=== PATIENT | female | born 1975 | race Caucasian/White ===

== ENCOUNTER 2016-09-21 09:10 | Day surgery (SDC) | payer MEDICARE, MEDICAID ==
[2016-09-21] MEDS ORDERED: PROPOFOL 10 MG/ML VIAL IV ONE (14:00)
[2016-09-21] MEDS ORDERED: MIDAZOLAM HCL 2MG/2ML VIAL IV ONE (14:00)
[2016-09-21] MEDS ORDERED: LIDOCAINE 2% MDV (20MG/ML) 20ML VIAL IV ONE (14:00)
--- NOTE | 2016-09-22 19:35 | Operative Note ---
DATE OF SURGERY: 09/21/2016 OPERATION: COLONOSCOPY with random biopsy. PREOPERATIVE DIAGNOSIS: Crohn's and diarrhea. POSTOPERATIVE DIAGNOSES: 1 No active Crohn's. 2. Normal-appearing ileocolonic anastomosis. 3. Rectosigmoid tattoo unremarkable. PROCEDURE: After informed consent was obtained from the patient, she was placed in the left lateral decubitus position in the endoscopy suite, sedated and monitored by the department of anesthesia. Digital rectal exam was unremarkable. A well-lubricated [id number] colonoscope was inserted into the rectum and advanced to the ileocolonic anastomosis. The ileum itself appeared unremarkable. The anastomosis also appeared unremarkable. There were no obvious inflammatory changes noted. Random colonic biopsies were obtained for histology. No inflammation, polyps, or mass lesions were seen. There were some changes in the rectosigmoid colon that were previous tattooing had occurred. There appeared to be some postoperative nodular changes but no other abnormalities identified. There was no mass or polyp seen in the area of the tattoo. The nodularity had been previously biopsied and appeared to be postoperative. The rectum was unremarkable in forward and J-turn views. The endoscope was straightened, the rectal ampulla deflated, and the endoscope was removed. RECOMMENDATIONS: The patient should resume her medications and diet. She needs to stop smoking. Also, she needs to follow up for continued monitoring of her potassium levels. As always, thank you for allowing me to participate in the healthcare of your patients. CC: ARNIE Sherman
== END 2016-09-21 11:59 | disposition home or self-care (01) ==
LOC: HOP 09:10
PROVIDERS: ATTEND Internal Medicine Gastroenterology
DX: Z87.19 Personal history of other diseases of the digestive system (principal); D12.2 Benign neoplasm of ascending colon
CPT/HCPCS: 81025

== ENCOUNTER 2017-03-18 08:07 | Emergency (ER) | payer MEDICARE, MEDICAID ==
--- NOTE | 2017-03-18 08:29 | Emergency Department Record ---
History of Present Illness - General Chief complaint: Eye Problem Stated complaint: r eye red and swollen Time Seen by Provider: 03/18/17 08:23 Source: Patient, RN notes reviewed Mode of Arrival: Ambulatory - History of Present Illness Initial comments: right lowewr eelid stye and swelling of the lower eye lid. No trauma vision is good. chief complaint: Eye redness Onset/Timin -: Days(s) Onset Description: Gradual, Awoke with symptoms Location: Right eye Place: Home If Injury: None Eye Symptoms: Itching, Redness Severity: Mild If Pain, Quality: Burning Consistency: Constant Associated Symptoms: None Treatments Prior to Arrival: None - Related Data Hx Tetanus Toxoid Vaccination: Yes Patient Tetanus UTD (within 5 yrs): Yes Previous Rx's Medication Instructions Recorded Sulfacetamide Sodium [Bleph-10] 1 - 2 drop AFFEYE QID #5 ml 03/18/17 Allergies Allergy/AdvReac Type Severity Reaction Status Date / Time steroids AdvReac Intermediate crying, Uncoded 07/24/16 16:36 anger, emotionally distressed Travel Screening - Travel/Exposure Within Last 30 Days Have you traveled within the last 30 days?: No - Travel/Exposure Within Last Year Have you traveled outside the [place] in the last year?: No - Additonal Travel Details Have you been exposed to anyone with a communicable illness?: No Review of Systems Reviewed: No additional complaints except as noted below Constitutional: Reports: As per HPI. Denies: Chills, Fever, Malaise, Night sweats, Weakness, Weight change Eyes: Reports: As per HPI, Eye discharge, Other (stye lower eyelid). Denies: Eye pain, Photophobia, Vision change ENT: Reports: As per HPI. Denies: Congestion, Dental pain, Ear pain, Epistaxis , Hearing loss, Throat pain Respiratory: Reports: As per HPI. Denies: Cough, Dyspnea, Hemoptysis, Stridor, Wheezes Cardiovascular: Reports: As per HPI. Denies: Arrhythmia, Chest pain, Dyspnea on exertion, Edema, Murmurs, Orthopnea, Palpitations, Paroxysmal nocturnal dyspnea, Rheumatic Fever, Syncope Endocrine: Reports: As per HPI. Denies: Fatigue, Heat or cold intolerance, Polydipsia, Polyuria Gastrointestinal: Reports: As per HPI. Denies: Abdominal pain, Constipation, Diarrhea, Hematemesis, Hematochezia, Melena, Nausea, Vomiting Genitourinary: Reports: As per HPI. Denies: Abnormal menses, Discharge, Dyspareunia, Dysuria, Frequency, Hematuria, Incontinence, Retention, Urgency Musculoskeletal: Reports: As per HPI. Denies: Arthralgia, Back pain, Gout, Joint swelling, Myalgia, Neck pain Skin: Reports: As per HPI. Denies: Bruising, Change in color, Change in hair/ nails, Lesions, Pruritus, Rash Neurological: Reports: As per HPI. Denies: Abnormal gait, Confusion, Headache, Numbness, Paresthesias, Seizure, Tingling, Tremors, Vertigo, Weakness Psychiatric: Reports: As per HPI. Denies: Anxiety, Auditory hallucinations, Depression, Homicidal thoughts, Suicidal thoughts, Visual hallucinations Hematological/Lymphatic: Reports: As per HPI. Denies: Anemia, Blood Clots, Easy bleeding, Easy bruising, Swollen glands Past Medical History - SOCIAL HISTORY Smoking Status: Light tobacco smoker (<10/day) Alcohol Use: None Drug Use: None - RESPIRATORY Hx Respiratory Disorders: No - CARDIOVASCULAR Hx Cardio Disorders: No - NEURO Hx Neuro Disorders: No - GI Hx GI Disorders: Yes Hx Abdominal Pain: Yes Hx Crohn's Disease: Yes Hx Nausea/Vomiting: Yes Hx Wt Loss/Wt Gain: Yes (gain of 8#'s in 6 mos) Hx of Polyps: Yes - Hx Genitourinary Disorders: No - ENDOCRINE Hx Endocrine Disorders: No - MUSCULOSKELETAL Hx Musculoskeletal Disorders: No - PSYCH Hx Psych Problems: Yes Hx Anxiety: Yes Hx Depression: Yes - HEMATOLOGY/ONCOLOGY Hx Hematology/Oncology Disorders: Yes Hx Cancer: Yes (Cervical) Family Medical History Any Significant Family History?: No Physical Exam - General General Appearance: Alert, Oriented x3, Cooperative, No acute distress - Head Head exam: Normal inspection - Eye Eye exam: PERRL, Conjunctival injection, EOMI, Other (Stye lower eyelid) Pupils: Normal accommodation - ENT ENT exam: Normal exam, Mucous membranes moist, Normal external ear exam, Normal orophraynx, TM's normal bilaterally Ear exam: Normal external inspection. negative: External canal tenderness Nasal Exam: Normal inspection. negative: Discharge, Sinus tenderness Mouth exam: Normal external inspection, Tongue normal Teeth exam: Normal inspection. negative: Dental caries Throat exam: Normal inspection. negative: Tonsillar erythema, Tonsillar exudate - Neck Neck exam: Normal inspection, Full ROM. negative: Tenderness - Respiratory Respiratory exam: Normal lung sounds bilaterally. negative: Respiratory distress - Cardiovascular Cardiovascular Exam: Regular rate, Normal rhythm, Normal heart sounds - GI/Abdominal GI/Abdominal exam: Soft, Normal bowel sounds. negative: Tenderness - Rectal Rectal exam: Deferred - exam: Deferred - Extremities Extremities exam: Normal inspection, Full ROM, Normal capillary refill. negative: Tenderness - Back Back exam: Reports: Normal inspection, Full ROM. Denies: Muscle spasm, Rash noted, Tenderness - Neurological Neurological exam: Alert, Normal gait, Oriented X3, Reflexes normal - Psychiatric Psychiatric exam: Normal affect, Normal mood - Skin Skin exam: Dry, Intact, Normal color, Warm Course Vital Signs 03/18/17 08:12 Temperature 98.3 F Pulse Rate 95 H Respiratory 20 Rate Blood Pressure 113/91 Pulse Ox 100 Disposition Clinical Impression: Emily external Qualifiers: Laterality: right Eyelid: lower Qualified Code(s): H00.012 - Hordeolum externum right lower eyelid Disposition: Home, Self-Care Condition: (1) Good Instructions: Emily (ED) Additional Instructions: warm compresses six times a day follow up with family in 4 days Prescriptions: Sulfacetamide Sodium [Bleph-10] 1 - 2 drop AFFEYE QID #5 ml Forms: Patient Portal Access Time of Disposition: 08:28 Quality - Quality Measures Quality Measures: N/A - Blood Pressure Screening Does Patient Have Any of the Following: No Blood Pressure Classification: Hypertensive Reading Systolic Measurement: 113 Diastolic Measurement: 91 Screening for High Blood Pressure: < First Hypertensive BP, F/U Documented > [ G8950] First Hypertensive Follow-up Interventions: Referral to alternative/primary care provider.
== END 2017-03-18 08:39 | disposition home or self-care (01) ==
LOC: ER 08:07
DX: H00.012 Hordeolum externum right lower eyelid (principal)
CPT/HCPCS: 99282

== ENCOUNTER 2017-04-19 09:01 | Observation (INO) | payer MEDICARE, MEDICAID ==
[2017-04-19] MEDS ORDERED: 0.9 % SODIUM CHLORIDE 1,000 ML BAG IV ONE (09:21)
[2017-04-19] MEDS ORDERED: ONDANSETRON HCL IV 4 MG/2 ML VIAL IV ONE (09:21)
[2017-04-19] MEDS ORDERED: HYDROMORPHONE HCL 1MG/ML **SYRINGE IVP ONE ×3 (09:24→14:35)
[2017-04-19 09:53] LABS: BASO % 0.3 % (0-6); EOS % 0.3 % (0-6); GRAN % 77.8 % (47-80); HEMATOCRIT 42.9 % (35.0-47.0); HEMOGLOBIN 14.7 gm/dl (11.6-16.0); LYMPH % 12.6 % (16-45); MEAN CORPUSCULAR HEMOGLOBIN 32.9 pg (27-33); MEAN CORPUSCULAR HGB CONC 34.3 g/dl (32-36); MEAN PLATELET VOLUME 10.8 fl (7.4-10.4); PLATELET COUNT 319 K/uL (130-400); RED BLOOD COUNT 4.47 M/uL (3.80-5.40); WHITE BLOOD COUNT W/O DIFF 9.9 K/uL (4.2-12.2)
[2017-04-19 10:11] LABS: ALB/GLOB RATIO 1.1 (1.1-1.8); ALBUMIN 3.7 g/dL (4.0-5.0); ALKALINE PHOSPHATASE 61 U/L (35-104); ALT/SGPT 7 U/L (<33); AST/SGOT 15 U/L (10.0-35.0); BLOOD UREA NITROGEN 6 mg/dL (6-20); CREATININE 0.5 mg/dL (0.5-0.9); EST GLOMERULAR FILTRATION RATE > 60 mL/min; GLUCOSE,RANDOM 106 mg/dL (74-109); LIPASE 25 U/L (13-60)
--- NOTE | 2017-04-19 10:30 | Emergency Department Record ---
History of Present Illness - General Chief Complaint: Abdominal Pain Stated Complaint: STOMACH PAIN Time Seen by Provider: 04/19/17 09:07 Source: Patient Mode of Arrival: Ambulatory Limitations: No limitations - History of Present Illness Initial Comments: pt has a long hx of crohns and feels like it is flaring up right now. she has ap and nausea and vomiting. MD Complaint: Abdominal pain Onset/Timin -: Days(s) Location: Diffuse Radiation: None Migration to: No migration Severity: Severe Quality: Aching, Cramping Consistency: Constant Improves With: Nothing Worsens With: Nothing Associated Symptoms: Diarrhea, Nausea, Vomiting - Related Data Patient : No Allergies Allergy/AdvReac Type Severity Reaction Status Date / Time steroids AdvReac Intermediate crying, Uncoded 04/19/17 09:14 anger, emotionally distressed Travel Screening - Travel/Exposure Within Last 30 Days Have you traveled within the last 30 days?: No Review of Systems Reviewed: No additional complaints except as noted below Constitutional: Reports: As per HPI. Denies: Chills, Fever, Malaise, Night sweats, Weakness, Weight change Eyes: Reports: As per HPI. Denies: Eye discharge, Eye pain, Photophobia, Vision change ENT: Reports: As per HPI. Denies: Congestion, Dental pain, Ear pain, Epistaxis , Hearing loss, Throat pain Respiratory: Reports: As per HPI. Denies: Cough, Dyspnea, Hemoptysis, Stridor, Wheezes Cardiovascular: Reports: As per HPI. Denies: Arrhythmia, Chest pain, Dyspnea on exertion, Edema, Murmurs, Orthopnea, Palpitations, Paroxysmal nocturnal dyspnea, Rheumatic Fever, Syncope Endocrine: Reports: As per HPI. Denies: Fatigue, Heat or cold intolerance, Polydipsia, Polyuria Gastrointestinal: Reports: As per HPI. Denies: Abdominal pain, Constipation, Diarrhea, Hematemesis, Hematochezia, Melena, Nausea, Vomiting Genitourinary: Reports: As per HPI. Denies: Abnormal menses, Discharge, Dyspareunia, Dysuria, Frequency, Hematuria, Incontinence, Retention, Urgency Musculoskeletal: Reports: As per HPI. Denies: Arthralgia, Back pain, Gout, Joint swelling, Myalgia, Neck pain Skin: Reports: As per HPI. Denies: Bruising, Change in color, Change in hair/ nails, Lesions, Pruritus, Rash Neurological: Reports: As per HPI. Denies: Abnormal gait, Confusion, Headache, Numbness, Paresthesias, Seizure, Tingling, Tremors, Vertigo, Weakness Psychiatric: Reports: As per HPI. Denies: Anxiety, Auditory hallucinations, Depression, Homicidal thoughts, Suicidal thoughts, Visual hallucinations Hematological/Lymphatic: Reports: As per HPI. Denies: Anemia, Blood Clots, Easy bleeding, Easy bruising, Swollen glands Past Medical History - SOCIAL HISTORY Smoking Status: Light tobacco smoker (<10/day) Alcohol Use: None Drug Use: None - RESPIRATORY Hx Respiratory Disorders: No - CARDIOVASCULAR Hx Cardio Disorders: No - NEURO Hx Neuro Disorders: No - GI Hx GI Disorders: Yes Hx Abdominal Pain: Yes Hx Crohn's Disease: Yes Hx Nausea/Vomiting: Yes Hx Wt Loss/Wt Gain: Yes Hx of Polyps: Yes - Hx Genitourinary Disorders: No - ENDOCRINE Hx Endocrine Disorders: No - MUSCULOSKELETAL Hx Musculoskeletal Disorders: No - PSYCH Hx Psych Problems: Yes Hx Anxiety: Yes Hx Depression: Yes - HEMATOLOGY/ONCOLOGY Hx Hematology/Oncology Disorders: Yes Hx Cancer: Yes (Cervical) Family Medical History Any Significant Family History?: No Physical Exam - General General Appearance: Alert, Oriented x3, Cooperative, No acute distress - Head Head exam: Normal inspection - Eye Eye exam: Normal appearance, PERRL, EOMI Pupils: Normal accommodation - ENT ENT exam: Normal exam, Mucous membranes moist, Normal external ear exam, Normal orophraynx Ear exam: Normal external inspection. negative: External canal tenderness Nasal Exam: Normal inspection. negative: Discharge, Sinus tenderness Mouth exam: Normal external inspection, Tongue normal Teeth exam: Normal inspection. negative: Dental caries Throat exam: Normal inspection. negative: Tonsillar erythema, Tonsillar exudate - Neck Neck exam: Normal inspection, Full ROM. negative: Tenderness - Respiratory Respiratory exam: Normal lung sounds bilaterally. negative: Respiratory distress - Cardiovascular Cardiovascular Exam: Normal rhythm, Normal heart sounds, Tachycardia - GI/Abdominal GI/Abdominal exam: Soft, Normal bowel sounds, Tenderness - Rectal Rectal exam: Deferred - exam: Deferred - Extremities Extremities exam: Normal inspection, Full ROM, Normal capillary refill. negative: Tenderness - Back Back exam: Reports: Normal inspection, Full ROM. Denies: Muscle spasm, Rash noted, Tenderness - Neurological Neurological exam: Alert, CN II-XII intact, Normal gait, Oriented X3 - Psychiatric Psychiatric exam: Normal affect, Normal mood - Skin Skin exam: Dry, Intact, Normal color, Warm Course Vital Signs 04/19/17 09:07 Temperature 97.8 F Pulse Rate 104 H Respiratory 18 Rate Blood Pressure 110/80 Pulse Ox 95 Medical Decision Making - Lab Data Result diagrams: 04/19/17 09:50 04/19/17 09:50 Lab Results 04/19/17 04/19/17 04/19/17 Range/Units 09:50 09:50 09:50 WBC 9.9 (4.2-12.2) K/uL RBC 4.47 (3.80-5.40) M/uL Hgb 14.7 (11.6-16.0) gm/dl Hct 42.9 (35.0-47.0) % MCV 96.0 (81-97) fl MCH 32.9 (27-33) pg MCHC 34.3 (32-36) g/dl RDW 13.0 (11.5-14.5) % Plt Count 319 (130-400) K/uL MPV 10.8 H (7.4-10.4) fl Gran % 77.8 (47-80) % Lymphocytes % 12.6 L (16-45) % Monocytes % 9.0 (0-9) % Eosinophils % 0.3 (0-6) % Basophils % 0.3 (0-6) % Sodium 141 (136-145) mmol/L Potassium 3.1 L (3.4-4.5) mmol/L Chloride 103 (98-107) mmol/L Carbon Dioxide 23.0 (22-29) mmol/L Anion Gap 15.0 (7-16) BUN 6 (6-20) mg/dL Creatinine 0.5 (0.5-0.9) mg/dL Estimated GFR > 60 mL/min Random Glucose 106 (74-109) mg/dL Lactic Acid 1.3 (0.5-2.2) mmol/L Calcium 8.9 (8.6-10.0) mg/dL Total Bilirubin 0.40 (0.2-1.0) mg/dL AST 15 (10.0-35.0) U/L ALT 7 (<33) U/L Alkaline Phosphatase 61 (35-104) U/L Total Protein 7.0 (6.6-8.7) g/dL Albumin 3.7 L (4.0-5.0) g/dL Globulin 3.3 (1.4-4.8) gm/dL Albumin/Globulin Ratio 1.1 (1.1-1.8) Lipase 25 (13-60) U/L Disposition Disposition: Admit Clinical Impression: SBO (small bowel obstruction) Disposition: Still a Patient at [facility] Decision to Admit: Admit from ER Decision to Admit Date: 04/19/17 Decision to Admit Time: 15:30 Forms: Patient Portal Access Quality - Quality Measures Quality Measures: N/A - Blood Pressure Screening Does Patient Have Any of the Following: No Blood Pressure Classification: Pre-Hypertensive BP Reading Systolic Measurement: 110 Diastolic Measurement: 80 Screening for High Blood Pressure: < Pre-Hypertensive BP, F/U Documented > [ G8950] Pre-Hypertensive Follow-up Interventions: Follow-up with rescreen every year.
[2017-04-19 12:33] LABS: URINE APPEARANCE CLEAR; URINE BILIRUBIN NEGATIVE (NEGATIVE); URINE BLOOD NEGATIVE (NEGATIVE); URINE COLOR YELLOW; URINE GLUCOSE (UA) NEGATIVE (NEGATIVE); URINE KETONE NEGATIVE (NEGATIVE); URINE LEUKOCYTE ESTERASE NEGATIVE (NEGATIVE); URINE NITRITE NEGATIVE (NEGATIVE); URINE PROTEIN NEGATIVE (NEGATIVE); URINE UROBILINOGEN 0.2 E.U./dL (0.20 - 1.00)
[2017-04-19] MEDS ORDERED: POTASSIUM CHLORIDE 20 MEQ TABLET PO ONE ×2 (15:35→15:57)
[2017-04-19] MEDS ORDERED: ACETAMINOPHEN 500 MG TABLET PO PRN (16:38)
[2017-04-19] MEDS ORDERED: Non-Formulary MISC (Adalimumab [Humira Pen] 40 MG) SQ SCH (16:38)
[2017-04-19] MEDS ORDERED: POTASSIUM GLUCONATE 99 MG PO SCH (16:38)
[2017-04-19] MEDS: 0.9 % SODIUM CHLORIDE 1000ML 1,000 ML IV PRN (16:49)
[2017-04-19] MEDS: HYDROMORPHONE HCL 1MG/ML **SYRINGE IVP PRN ×2 (16:57→21:37)
[2017-04-19] MEDS: ONDANSETRON HCL IV 4 MG/2 ML VIAL IVP PRN ×2 (17:03→21:09)
[2017-04-19] MEDS: DICYCLOMINE HCL 10 MG CAPSULE PO SCH ×2 (18:13→21:38)
[2017-04-19] MEDS: DULOXETINE HCL 30 MG CAPSULE.DR PO SCH (21:38)
[2017-04-19] MEDS: BUSPIRONE 5 MG TABLET PO SCH (21:38)
[2017-04-19] MEDS: TEMAZEPAM 15 MG CAPSULE PO PRN (21:38)
[2017-04-20] MEDS: 0.9 % SODIUM CHLORIDE 1000ML 1,000 ML IV PRN ×3 (00:35→17:45)
[2017-04-20] MEDS: ONDANSETRON HCL IV 4 MG/2 ML VIAL IVP PRN ×3 (03:03→13:13)
[2017-04-20] MEDS: HYDROMORPHONE HCL 1MG/ML **SYRINGE IVP PRN ×2 (03:40→08:42)
[2017-04-20 06:33] LABS: HEMATOCRIT 39.4 % (35.0-47.0); MEAN CELL VOLUME 97.3 fl (81-97); MEAN CORPUSCULAR HEMOGLOBIN 32.1 pg (27-33); MEAN PLATELET VOLUME 10.8 fl (7.4-10.4); PLATELET COUNT 276 K/uL (130-400); RED BLOOD COUNT 4.05 M/uL (3.80-5.40); RED CELL DISTRIBUTION WIDTH 13.1 % (11.5-14.5)
[2017-04-20 06:41] LABS: BLOOD UREA NITROGEN 8 mg/dL (6-20); CREATININE 0.5 mg/dL (0.5-0.9); EST GLOMERULAR FILTRATION RATE > 60 mL/min; GLUCOSE,RANDOM 100 mg/dL (74-109)
[2017-04-20 06:45] LABS: PLATELET ESTIMATE NORMAL (NORMAL)
[2017-04-20] MEDS ORDERED: POTASSIUM CHLORIDE 20 MEQ TABLET PO ONE (06:57)
--- NOTE | 2017-04-20 07:26 | CT SCAN REPORT ---
EXAM: ABDOMEN AND PELVIS CT WITH IV CONTRAST HISTORY: RIGHT LOWER QUADRANT AND LEFT LOWER QUADRANT ABDOMINAL PAIN FOR THREE DAYS. CROHN'S DISEASE. TECHNIQUE: Contiguous axial images from the lung bases to the symphysis pubis were obtained after the uneventful intravenous administration of 100 ml of Omnipaque 300. Comparison: Abdomen and pelvis CT 12/07/14. FINDINGS: Mild dependent atelectasis at both lung bases. Mild prominence of the intra and extrahepatic biliary tree not unusual status post cholecystectomy. The spleen is unremarkable. The kidneys, adrenals, and pancreas are normal. The gallbladder is absent. There are mild to moderately dilated fluid filled loops of small bowel beginning in the left lower quadrant extending to the ileocolic anastomosis. No obvious bowel wall thickening or mucosal hyperenhancement of the dilated bowel. There is questionable at least mild smooth narrowing at the ileocolic anastomosis best seen on coronal image 56 of 159 for which stomal stenosis is not excluded. Minimal edema in the mesentery of the left mid abdomen. Fluid throughout the colon consistent with diarrhea. The abdominal aorta and mesenteric vessels are patent. No free intraperitoneal fluid. Small, but conspicuous lymph nodes at the root of the mesentery measuring up to 10 x 5 mm. There is laxity of the ventral abdominal wall. There is questionable short segment wall thickening of the sigmoid colon best seen on axial image 92 of 121 with liminal narrowing in this region for which active inflammation is not excluded. No lytic or blastic osseous lesions. IMPRESSION: 1. MILD TO MODERATELY DILATED FLUID FILLED SMALL BOWEL BEGINNING IN THE LEFT LOWER QUADRANT EXTENDING TO THE ILEOCOLIC ANASTOMOSIS WHICH MAY REFLECT LOW GRADE PARTIAL SMALL BOWEL OBSTRUCTION. QUESTIONABLE MILD SMOOTH NARROWING AT THE ANASTOMOSIS WHICH COULD RELATE TO STOMAL STENOSIS. 2. FOCAL MUCOSAL HYPERENHANCEMENT AND REDUCTION OF CALIBER FOCALLY INVOLVING THE SIGMOID COLON FOR WHICH ACTIVE COLITIS DUE TO CROHN'S DISEASE IS NOT EXCLUDED. JOB NUMBER: [id number] [facility]
[2017-04-20] MEDS: DICYCLOMINE HCL 10 MG CAPSULE PO SCH ×4 (08:42→21:16)
[2017-04-20] MEDS: BUSPIRONE 5 MG TABLET PO SCH ×2 (09:12→21:16)
[2017-04-20] MEDS ORDERED: MESALAMINE 1.5 GM PO SCH (10:00)
[2017-04-20] MEDS ORDERED: AZATHIOPRINE 150 MG PO SCH (10:00)
[2017-04-20] MEDS: HYDROCODONE/APAP 5/325MG TABLET PO PRN ×2 (13:16→17:30)
--- NOTE | 2017-04-20 13:50 | History and Physical Report ---
DATE OF ADMISSION: 04/19/2017 SURGEON: Marbin Birch DO ADMITTING DIAGNOSIS: Partial small bowel obstruction. HISTORY OF CHIEF COMPLAINT: The patient is a 41-year-old female who is well known to me. She stated that she developed 2-3 days of crampy abdominal pain. She had some emesis as well. She has been passing gas and moving her bowels. She has a long history of Crohn disease which has been controlled on oral medication, which includes Humira. She has undergone a prior ileocecectomy. She was admitted last night but currently feels better today. CT scan was done which did show findings consistent with partial small bowel obstruction with dilated fluid-filled bowel. There were no obvious findings of an acute Crohn's flare. MEDICAL HISTORY: Crohn disease. SURGICAL HISTORY: Ileocecectomy. CURRENT MEDICATIONS: Humira. ALLERGIES: STEROIDS. SOCIAL HISTORY: She does smoke 1/2 a pack of cigarettes per day. PHYSICAL EXAMINATION: VITAL SIGNS: Stable. She is afebrile. HEART: Regular rate and rhythm. LUNGS: Clear. ABDOMEN: Soft, mildly obese, nontender, nondistended. She has a well-healed infraumbilical laparotomy scar noted. EXTREMITIES: No trace of edema. LABORATORY DATA: Her white count is 9.9, hemoglobin 14.7, platelet count 319. Her chemistries are all normal with the exception of slightly low potassium at 3.1. IMPRESSION: Partial small bowel obstruction, resolving. PLAN: Would recommend a soft diet. If she tolerates this, she can be discharged. She may want to follow up with her commercial illustrator but at this point needs no surgical intervention. Thank you for allowing me to participate in the care of this patient. Please do not hesitate to call me if I can be of further assistance. CC: ARNIE Sherman
[2017-04-20] MEDS: DULOXETINE HCL 30 MG CAPSULE.DR PO SCH (21:16)
[2017-04-20] MEDS: TEMAZEPAM 15 MG CAPSULE PO PRN (21:19)
--- NOTE | 2017-04-30 13:30 | Discharge Summary ---
DATE OF ADMISSION: 04/19/2017 DATE OF DISCHARGE: 04/21/2017 ADMITTING DIAGNOSIS: Small bowel obstruction. DISCHARGE DIAGNOSIS: Small bowel obstruction. HOSPITAL COURSE: The patient is a 41-year-old female who was admitted for abdominal pain. CT scan did show dilated small bowel with a positive small bowel obstruction. Clinically, she was doing well. She was admitted to the floor for IV hydration, pain control. She started to feel better right away. Therefore, a diet was instituted. The next day she was seen. Her exam was benign. We did institute a diet, which was advanced quickly. She was sent home in stable condition on 04/21/2017. She was given instructions to follow up with her analytical chemist and to call me if any problems. SHASHANK
== END 2017-04-21 10:00 | disposition home or self-care (01) ==
LOC: ER 09:01 → MEDSURG 16:11
PROVIDERS: ADMIT Surgery; ATTEND Internal Medicine
DX: K56.690 Other partial intestinal obstruction (principal); Z72.0 Tobacco use; K50.00 Crohn's disease of small intestine without complications; Z85.41 Personal history of malignant neoplasm of cervix uteri; R11.2 Nausea with vomiting, unspecified
CPT/HCPCS: 99285 ×2; 96374; 96375; 83605; 83690; 85025; 80048; 80053; 81003; 85027; 74177; G0378 ×3; Q9967; J2405 ×2; J1170 ×2; J7030

== ENCOUNTER 2017-06-12 11:00 | Inpatient (IN) | payer MEDICARE, MEDICAID ==
[2017-06-12] MEDS ORDERED: ONDANSETRON HCL IV 4 MG/2 ML VIAL IV ONE (11:43)
[2017-06-12] MEDS ORDERED: 0.9 % SODIUM CHLORIDE 1,000 ML BAG IV ONE (11:43)
[2017-06-12] MEDS ORDERED: HYDROMORPHONE HCL 1 MG/ML SYRINGE IVP ONE ×3 (11:45→15:27)
[2017-06-12 12:16] LABS: BASO % 0.2 % (0-6); GRAN % 79.1 % (47-80); HEMATOCRIT 46.5 % (35.0-47.0); HEMOGLOBIN 15.8 gm/dl (11.6-16.0); LYMPH % 8.7 % (16-45); MEAN CELL VOLUME 96.1 fl (81-97); MEAN CORPUSCULAR HEMOGLOBIN 32.6 pg (27-33); MEAN PLATELET VOLUME 10.6 fl (7.4-10.4); PLATELET COUNT 369 K/uL (130-400); RED BLOOD COUNT 4.84 M/uL (3.80-5.40); RED CELL DISTRIBUTION WIDTH 13.3 % (11.5-14.5); WHITE BLOOD COUNT W/O DIFF 11.9 K/uL (4.2-12.2)
[2017-06-12 12:44] LABS: ALB/GLOB RATIO 1.2 (1.1-1.8); ALBUMIN 4.6 g/dL (4.0-5.0); ALKALINE PHOSPHATASE 93 U/L (35-104); ALT/SGPT 10 U/L (<33); AST/SGOT 16 U/L (10.0-35.0); BLOOD UREA NITROGEN 14 mg/dL (6-20); CREATININE 0.7 mg/dL (0.5-0.9); EST GLOMERULAR FILTRATION RATE > 60 mL/min; GLUCOSE,RANDOM 108 mg/dL (74-109); LIPASE 24 U/L (13-60); TOTAL PROTEIN 8.4 g/dL (6.6-8.7)
[2017-06-12] MEDS ORDERED: SOD CHLOR 0.9% WITH KCL 40MEQ 40 MEQ/1,000 ML IV.SOLN IV ONE (13:12)
[2017-06-12 13:28] LABS: URINE APPEARANCE CLEAR; URINE BILIRUBIN MODERATE (NEGATIVE); URINE BLOOD TRACE-I (NEGATIVE); URINE COLOR DARK YELLOW; URINE GLUCOSE (UA) NEGATIVE (NEGATIVE); URINE KETONE 160 mg/dL (NEGATIVE); URINE LEUKOCYTE ESTERASE NEGATIVE (NEGATIVE); URINE NITRITE NEGATIVE (NEGATIVE); URINE UROBILINOGEN 0.2 E.U./dL (0.20 - 1.00)
[2017-06-12 13:34] LABS: URINE AMORPHOUS SEDIMENT 1+; URINE MUCUS HEAVY; URINE WBC NONE SEEN (0-2/hpf)
--- NOTE | 2017-06-12 13:47 | Emergency Department Record ---
History of Present Illness - General Chief Complaint: Abdominal Pain Stated Complaint: CROHNS ACTING UP/FLU Time Seen by Provider: 06/12/17 11:40 Source: Patient Mode of Arrival: Ambulatory Limitations: No limitations - History of Present Illness Initial Comments: pt has had 2 days of ap and vomiting that is similar to her previous sbo. she has vomited more then 10 x MD Complaint: Abdominal pain Onset/Timin -: Days(s) Location: Diffuse, Periumbilical Radiation: None Migration to: No migration Severity: Moderate Improves With: Nothing Worsens With: Nothing Associated Symptoms: Chills, Vomiting - Related Data Patient : No Allergies Allergy/AdvReac Type Severity Reaction Status Date / Time steroids AdvReac Intermediate crying, Uncoded 04/19/17 09:14 anger, emotionally distressed Travel Screening - Travel/Exposure Within Last 30 Days Have you traveled within the last 30 days?: No - Travel/Exposure Within Last Year Have you traveled outside the [place] in the last year?: No - Additonal Travel Details Have you been exposed to anyone with a communicable illness?: No - Travel Symptoms Symptom Screening: None Review of Systems Reviewed: No additional complaints except as noted below Constitutional: Reports: As per HPI. Denies: Chills, Fever, Malaise, Night sweats, Weakness, Weight change Eyes: Reports: As per HPI. Denies: Eye discharge, Eye pain, Photophobia, Vision change ENT: Reports: As per HPI. Denies: Congestion, Dental pain, Ear pain, Epistaxis , Hearing loss, Throat pain Respiratory: Reports: As per HPI. Denies: Cough, Dyspnea, Hemoptysis, Stridor, Wheezes Cardiovascular: Reports: As per HPI. Denies: Arrhythmia, Chest pain, Dyspnea on exertion, Edema, Murmurs, Orthopnea, Palpitations, Paroxysmal nocturnal dyspnea, Rheumatic Fever, Syncope Endocrine: Reports: As per HPI. Denies: Fatigue, Heat or cold intolerance, Polydipsia, Polyuria Gastrointestinal: Reports: As per HPI. Denies: Abdominal pain, Constipation, Diarrhea, Hematemesis, Hematochezia, Melena, Nausea, Vomiting Genitourinary: Reports: As per HPI. Denies: Abnormal menses, Discharge, Dyspareunia, Dysuria, Frequency, Hematuria, Incontinence, Retention, Urgency Musculoskeletal: Reports: As per HPI. Denies: Arthralgia, Back pain, Gout, Joint swelling, Myalgia, Neck pain Skin: Reports: As per HPI. Denies: Bruising, Change in color, Change in hair/ nails, Lesions, Pruritus, Rash Neurological: Reports: As per HPI. Denies: Abnormal gait, Confusion, Headache, Numbness, Paresthesias, Seizure, Tingling, Tremors, Vertigo, Weakness Psychiatric: Reports: As per HPI. Denies: Anxiety, Auditory hallucinations, Depression, Homicidal thoughts, Suicidal thoughts, Visual hallucinations Hematological/Lymphatic: Reports: As per HPI. Denies: Anemia, Blood Clots, Easy bleeding, Easy bruising, Swollen glands Past Medical History - SOCIAL HISTORY Smoking Status: Current every day smoker Alcohol Use: None Drug Use: None - RESPIRATORY Hx Respiratory Disorders: No - CARDIOVASCULAR Hx Cardio Disorders: No - NEURO Hx Neuro Disorders: No - GI Hx GI Disorders: Yes Hx Abdominal Pain: Yes Hx Crohn's Disease: Yes (2011) Hx Nausea/Vomiting: Yes Hx Obstructive Bowel: Yes (today) Hx Wt Loss/Wt Gain: Yes Hx of Polyps: Yes - Hx Genitourinary Disorders: No - ENDOCRINE Hx Endocrine Disorders: No Hx Diabetes: No Hx Thyroid Disease: No - MUSCULOSKELETAL Hx Musculoskeletal Disorders: No - PSYCH Hx Psych Problems: Yes Hx Anxiety: Yes (meds) Hx Depression: Yes (meds) - HEMATOLOGY/ONCOLOGY Hx Hematology/Oncology Disorders: Yes Hx Cancer: Yes (Cervical, hpv) Family Medical History Any Significant Family History?: No Physical Exam - General General Appearance: Alert, Oriented x3, Cooperative, Mild distress - Head Head exam: Normal inspection - Eye Eye exam: Normal appearance, PERRL, EOMI Pupils: Normal accommodation - ENT ENT exam: Normal exam, Mucous membranes moist, Normal external ear exam, Normal orophraynx Ear exam: Normal external inspection. negative: External canal tenderness Nasal Exam: Normal inspection. negative: Discharge, Sinus tenderness Mouth exam: Normal external inspection, Tongue normal Teeth exam: Normal inspection. negative: Dental caries Throat exam: Normal inspection. negative: Tonsillar erythema, Tonsillar exudate - Neck Neck exam: Normal inspection, Full ROM. negative: Tenderness - Respiratory Respiratory exam: Normal lung sounds bilaterally. negative: Respiratory distress - Cardiovascular Cardiovascular Exam: Regular rate, Normal rhythm, Normal heart sounds - GI/Abdominal GI/Abdominal exam: Soft, Normal bowel sounds, Distended, Guarding, Tenderness - Rectal Rectal exam: Deferred - exam: Deferred - Extremities Extremities exam: Normal inspection, Full ROM, Normal capillary refill. negative: Tenderness - Back Back exam: Reports: Normal inspection, Full ROM. Denies: Muscle spasm, Rash noted, Tenderness - Neurological Neurological exam: Alert, CN II-XII intact, Normal gait, Oriented X3 - Psychiatric Psychiatric exam: Normal affect, Normal mood - Skin Skin exam: Dry, Intact, Normal color, Warm Course Vital Signs 06/12/17 06/12/17 06/12/17 11:20 11:49 12:47 Temperature 97.6 F Pulse Rate [ 105 H 101 H Pulse Ox Probe] Respiratory 16 16 Rate Blood Pressure 111/72 112/65 [Left Arm] Pulse Ox 98 97 Medical Decision Making - Lab Data Result diagrams: 06/12/17 11:56 06/12/17 11:56 Lab Results 06/12/17 06/12/17 06/12/17 Range/Units 11:56 11:56 13:20 WBC 11.9 (4.2-12.2) K/uL RBC 4.84 (3.80-5.40) M/uL Hgb 15.8 (11.6-16.0) gm/dl Hct 46.5 (35.0-47.0) % MCV 96.1 (81-97) fl MCH 32.6 (27-33) pg MCHC 34.0 (32-36) g/dl RDW 13.3 (11.5-14.5) % Plt Count 369 (130-400) K/uL MPV 10.6 H (7.4-10.4) fl Gran % 79.1 (47-80) % Lymphocytes % 8.7 L (16-45) % Monocytes % 12.0 H (0-9) % Eosinophils % 0.0 (0-6) % Basophils % 0.2 (0-6) % Sodium 139 (136-145) mmol/L Potassium 2.9 L* (3.4-4.5) mmol/L Chloride 98 (98-107) mmol/L Carbon Dioxide 22.0 (22-29) mmol/L Anion Gap 19.0 H (7-16) BUN 14 (6-20) mg/dL Creatinine 0.7 (0.5-0.9) mg/dL Estimated GFR > 60 mL/min Random Glucose 108 (74-109) mg/dL Calcium 9.5 (8.6-10.0) mg/dL Total Bilirubin 0.70 (0.2-1.0) mg/dL AST 16 (10.0-35.0) U/L ALT 10 (<33) U/L Alkaline Phosphatase 93 (35-104) U/L Total Protein 8.4 (6.6-8.7) g/dL Albumin 4.6 (4.0-5.0) g/dL Globulin 3.8 (1.4-4.8) gm/dL Albumin/Globulin Ratio 1.2 (1.1-1.8) Lipase 24 (13-60) U/L Urine Color Dark yellow Urine Appearance Clear Urine pH 6.0 (5.0-8.0) Ur Specific [place] >= 1.030 (1.002-1.030) Urine Protein 30 mg/dl H (NEGATIVE) Urine Glucose (UA) Negative (NEGATIVE) Urine Ketones 160 mg/dl H (NEGATIVE) Urine Blood Trace-i (NEGATIVE) Urine Nitrite Negative (NEGATIVE) Urine Bilirubin Moderate H (NEGATIVE) Urine Urobilinogen 0.2 (0.20 - 1.00) E.U./dL Ur Leukocyte Esterase Negative (NEGATIVE) Urine RBC 3 - 6 (NONE SEEN) Urine WBC None seen (0-2/hpf) Ur Epithelial Cells 7 - 10 (FEW) Amorphous Sediment 1+ Urine Mucus Heavy Disposition Disposition: Admit Clinical Impression: SBO (small bowel obstruction) Crohn's colitis Qualifiers: Digestive disease complication type: with intestinal obstruction Qualified Code (s): K50.112 - Crohn's disease of large intestine with intestinal obstruction Disposition: Still a Patient at [facility] Decision to Admit: Admit from ER Decision to Admit Date: 06/12/17 Decision to Admit Time: 15:56 Quality - Quality Measures Quality Measures: N/A - Blood Pressure Screening Does Patient Have Any of the Following: No Blood Pressure Classification: Normal BP Reading Systolic Measurement: 104 Diastolic Measurement: 63 Screening for High Blood Pressure: < Normal BP, F/U Not Required > [G8783]
[2017-06-12] MEDS ORDERED: Non-Formulary MISC (Adalimumab [Humira Pen] 40 MG) SQ SCH (16:15)
[2017-06-12] MEDS ORDERED: MEDROXYPROGESTERONE ACETATE 150 MG IM SCH (16:15)
[2017-06-12] MEDS ORDERED: TEMAZEPAM 15 MG CAPSULE PO PRN (17:00)
[2017-06-12] MEDS ORDERED: ONDANSETRON HCL IV 4 MG/2 ML VIAL IVP PRN (17:00)
[2017-06-12] MEDS: DICYCLOMINE HCL 10 MG CAPSULE PO SCH ×2 (18:41→22:36)
[2017-06-12] MEDS: HYDROMORPHONE HCL 1 MG/ML SYRINGE IVP PRN ×2 (18:41→22:37)
[2017-06-12] MEDS: 0.9 % SODIUM CHLORIDE 1000ML 1,000 ML IV PRN (18:53)
[2017-06-12] MEDS: BUSPIRONE 5 MG TABLET PO SCH (22:36)
[2017-06-13] MEDS: 0.9 % SODIUM CHLORIDE 1000ML 1,000 ML IV PRN (03:07)
[2017-06-13] MEDS: HYDROMORPHONE HCL 1 MG/ML SYRINGE IVP PRN ×2 (03:07→07:11)
[2017-06-13 06:39] LABS: HEMATOCRIT 43.8 % (35.0-47.0); MEAN CORPUSCULAR HEMOGLOBIN 31.3 pg (27-33); MEAN PLATELET VOLUME 10.7 fl (7.4-10.4); PLATELET COUNT 333 K/uL (130-400); RED BLOOD COUNT 4.47 M/uL (3.80-5.40); RED CELL DISTRIBUTION WIDTH 13.2 % (11.5-14.5); WHITE BLOOD COUNT W/O DIFF 10.8 K/uL (4.2-12.2)
[2017-06-13 06:51] LABS: ALB/GLOB RATIO 1.2 (1.1-1.8); ALBUMIN 3.8 g/dL (4.0-5.0); ALKALINE PHOSPHATASE 76 U/L (35-104); ALT/SGPT 8 U/L (<33); AST/SGOT 13 U/L (10.0-35.0); BLOOD UREA NITROGEN 8 mg/dL (6-20); CREATININE 0.5 mg/dL (0.5-0.9); EST GLOMERULAR FILTRATION RATE > 60 mL/min; GLUCOSE,RANDOM 89 mg/dL (74-109)
--- NOTE | 2017-06-13 07:36 | CT SCAN REPORT ---
EXAM: EMERGENCY CT OF THE ABDOMEN AND PELVIS WITH CONTRAST HISTORY: ABDOMINAL PAIN, CROHN'S FLARE UP, VOMITING. PRIOR CHOLECYSTECTOMY, APPENDECTOMY, PARTIAL BOWEL RESECTION. TECHNIQUE: Axial CT scan of the abdomen and pelvis was performed following both oral and IV contrast administration utilizing a dose of 100 ml of Omnipaque 300 as the IV contrast. Comparison: CT of the abdomen and pelvis 04/19/17. FINDINGS: The patient is postop cholecystectomy as before. Mild intrahepatic biliary dilatation similar to before is presumably just physiologic in nature related to the post cholecystectomy state. Correlation with serum bilirubin is suggested. No definite hepatic, splenic, adrenal, pancreatic, or renal mass identified. There is again an appearance suggesting a focal narrowing in the region of the low sigmoid colon in the same area of noted on the prior study possibly with mild enhancement of the wall of the short segment of narrowing in the sigmoid colon. This is nonspecific although could represent some focal Crohn's disease. A sigmoidoscopy may be useful to further assess. The ileocolic anastomosis in the right lower quadrant is again evident. There is mild distention of the small bowel leading to the anastomosis similar to before with the degree of distention greatest anteriorly in the midline in an area of relative weakening of the linea alba of the anterior abdominal wall as before. This relative distention of the small bowel measures about 5.2 cm today and previously measured about 5.3 cm, essentially unchanged. Some mildly prominent mesenteric nodes are again seen, minimally more prominent than before and there is probably a small amount of fluid within the mesenteric today at about the umbilical level not noted previously. Some dependent atelectasis in the lung bases posteriorly. No free intraperitoneal air identified. IMPRESSION: 1. POSTOP CHOLECYSTECTOMY WITH MILD PROMINENCE OF THE BILIARY TREE SIMILAR TO THAT SEEN ON 04/19/17. THIS MAY SIMPLY BE PHYSIOLOGIC IN NATURE, BUT CORRELATION WITH SERUM BILIRUBIN IS SUGGESTED. 2. POSTOP PROXIMAL COLON RESECTION ALONG LIKELY WITH APPENDECTOMY, WITH ILEOCOLIC ANASTOMOSIS RIGHT LOWER QUADRANT BEFORE. SOME DILATATION OF THE DISTAL SMALL BOWEL LEADING TO THE ANASTOMOSIS BEFORE. 3. FOCAL NARROWING WITH WALL ENHANCEMENT IN THE LOWER SIGMOID COLON ESSENTIALLY UNCHANGED FROM 04/19/17. THIS COULD REPRESENT RECURRENT CROHN'S DISEASE IN THIS LOCATION. FOLLOW-UP SIGMOIDOSCOPY MAY BE USEFUL. 4. MILDLY PROMINENT MESENTERIC NODES ARE PRESUMABLY REACTIVE IN NATURE. SMALL AMOUNT OF FLUID IN THE MESENTERY WELL. NO FREE AIR EVIDENT. JOB NUMBER: [id number] [facility]
[2017-06-13] MEDS ORDERED: SOD CHLOR 0.9% WITH KCL 40MEQ 40 MEQ/1,000 ML IV.SOLN IV ONE (08:59)
[2017-06-13] MEDS: MAGNESIUM OXIDE 400 MG TABLET PO SCH (09:06)
[2017-06-13] MEDS: DULOXETINE HCL 30 MG CAPSULE.DR PO SCH (09:06)
[2017-06-13] MEDS: FOLIC ACID 1 MG TABLET PO SCH (09:07)
[2017-06-13] MEDS: DICYCLOMINE HCL 10 MG CAPSULE PO SCH (09:07)
[2017-06-13] MEDS: BUSPIRONE 5 MG TABLET PO SCH ×2 (09:08→21:35)
--- NOTE | 2017-06-13 09:49 | History & Physical ---
History of Present Illness - Date of Service Date of Service for History & Physical: 06/13/17 - History of Present Illness Admitting Diagnosis: Partial SBO, Crohn's Disease History of Present Illness: Fabiana is a 41 year-old female who was admitted on 06/12/17 for management of small bowel obstruction and Crohn's disease. Her history includes Crohn's disease (diagnosed in 2009), previous SBO (04/2017), anxiety, depression, smoker (0.5 ppd), cervical cancer, and several abdominal surgeries ( appendectomy, cholecystectomy, ileocecectomy). She was previously admitted from 04/19/17 to 04/21/17 for a small bowel obstruction. Her general surgeon is Dr. Hanna and she sees Dr. Sotelo for GI. She presented to the ED on 06/12/17 because she had been experiencing abdominal pain and vomiting for 2 days. She vomited greater than 10 times in that time and also experienced chills. She states that her pain is similar to the pain she experienced during a previous admission from 04/19 to 04/21. She has about 5 loose stools/day, she states that is her norm. In the ED, she remained afebrile and her vital signs were stable- BP 111/72, RR 16, HR 105, 98 % on room air. A CMP and CBC demonstrated a low potassium of 2.9. An abdominal CT demonstrated a post-op proximal colon resection with ileocolic anastmosis RLQ, some dilation of distal small bowel, focal narrowing with wall enhancement in the lower sigmoid colon- recurrent Crohn's. Her CT was compared to a previous CT on 04/19/17 and remains unchanged. Due to her history of SBO and Crohn's, she was admitted for management of SBO with IV hydration and pain management. Dr. Hanna was consulted and she was placed NPO. 06/13/17 0900: Fabiana is resting in bed. She states that her abdominal pain is a 7/10 and that IV dilaudid is helpful to her. She denies nausea and states that she has not vomited since yesterday. She states that she continues to have loose stools, but that it is unchanged from her norm. Her vital signs today remain stable, BP 109/60, HR 89, RR 18, T 98.3F and 96% RA. Her K+ this morning was 2.9 and is presently being treated with 40mEq potassium chloride IV. Travel Screening - Travel/Exposure Within Last 30 Days Have you traveled within the last 30 days?: No - Travel/Exposure Within Last Year Have you traveled outside the [place] in the last year?: No - Additonal Travel Details Have you been exposed to anyone with a communicable illness?: No - Travel Symptoms Symptom Screening: None Review of Systems Constitutional: Reports: As per HPI, Chills. Denies: Fever, Malaise, Night sweats, Weakness, Weight change Eyes: Reports: As per HPI. Denies: Eye discharge, Eye pain, Photophobia, Vision change ENT: Reports: As per HPI. Denies: Congestion, Dental pain, Ear pain, Epistaxis , Hearing loss, Throat pain Respiratory: Reports: As per HPI. Denies: Cough, Dyspnea, Hemoptysis, Stridor, Wheezes Cardiovascular: Reports: As per HPI. Denies: Arrhythmia, Chest pain, Dyspnea on exertion, Edema, Murmurs, Orthopnea, Palpitations, Paroxysmal nocturnal dyspnea, Rheumatic Fever, Syncope Endocrine: Reports: As per HPI. Denies: Fatigue, Heat or cold intolerance, Polydipsia, Polyuria Gastrointestinal: Reports: Abdominal pain, Nausea, Vomiting, Other (loose stools ). Denies: Constipation, Diarrhea, Hematemesis, Hematochezia, Melena Genitourinary: Reports: As per HPI. Denies: Abnormal menses, Discharge, Dyspareunia, Dysuria, Frequency, Hematuria, Incontinence, Retention, Urgency Musculoskeletal: Reports: As per HPI. Denies: Arthralgia, Back pain, Gout, Joint swelling, Myalgia, Neck pain Skin: Reports: As per HPI. Denies: Bruising, Change in color, Change in hair/ nails, Lesions, Pruritus, Rash Neurological: Reports: As per HPI. Denies: Abnormal gait, Confusion, Headache, Numbness, Paresthesias, Seizure, Tingling, Tremors, Vertigo, Weakness Psychiatric: Reports: As per HPI. Denies: Anxiety, Auditory hallucinations, Depression, Homicidal thoughts, Suicidal thoughts, Visual hallucinations Hematological/Lymphatic: Reports: As per HPI. Denies: Anemia, Blood Clots, Easy bleeding, Easy bruising, Swollen glands Past Medical History - SOCIAL HISTORY Smoking Status: Current every day smoker (0.5 ppd) Alcohol Use: None Drug Use: None - RESPIRATORY Hx Respiratory Disorders: No - CARDIOVASCULAR Hx Cardio Disorders: No - NEURO Hx Neuro Disorders: No - GI Hx GI Disorders: Yes Hx Abdominal Pain: Yes Hx Celiac Disease: No Hx Crohn's Disease: Yes (2011) Hx Diverticulitis: No Hx GI Bleed: No Hx Reflux: No Hx Hepatitis/Jaundice: No Hx Hiatal Hernia: No Hx Irritable Bowel: No Hx Liver Disease: No Hx Nausea/Vomiting: Yes Hx Obstructive Bowel: Yes (today) Hx Pancreatitis: No Hx Rectal Bleeding: No Hx Ulcer: No Hx Wt Loss/Wt Gain: Yes Hx Cirrhosis: No Hx of Polyps: Yes - Hx Genitourinary Disorders: No - ENDOCRINE Hx Endocrine Disorders: No Hx Diabetes: No Hx Thyroid Disease: No - MUSCULOSKELETAL Hx Musculoskeletal Disorders: No - PSYCH Hx Psych Problems: Yes Hx Anxiety: Yes (meds) Hx Depression: Yes (meds) - HEMATOLOGY/ONCOLOGY Hx Hematology/Oncology Disorders: Yes Hx Cancer: Yes (Cervical, hpv) Family Medical History Any Significant Family History?: No H&P Meds/Allergies - Allergies Allergies: Allergies Allergy/AdvReac Type Severity Reaction Status Date / Time steroids AdvReac Intermediate crying, Uncoded 04/19/17 09:14 anger, emotionally distressed - Active Medications Active Medications: Current Medications Buspirone HCl (Buspar) 30 mg PO BID [facility] Last Admin: 06/13/17 09:08 Dose: 30 mg Dicyclomine HCl (Bentyl) 10 mg PO QID [facility] Last Admin: 06/13/17 09:07 Dose: 10 mg Duloxetine HCl (Cymbalta) 30 mg PO DAILY [facility] Last Admin: 06/13/17 09:06 Dose: 30 mg Folic Acid () 1 mg PO DAILY [facility] Last Admin: 06/13/17 09:07 Dose: 1 mg Hydromorphone HCl (Dilaudid) 0.5 mg IVP Q4HR PRN PRN Reason: Abdominal Pain Last Admin: 06/13/17 07:11 Dose: 0.5 mg Sodium Chloride () 1,000 mls @ 125 mls/hr IV .Q8H PRN PRN Reason: LARGE VOLUME IV Last Infusion: 06/13/17 09:09 Dose: 0 mls/hr Potassium Chloride/Sodium Chloride (Potassium Chl 40meq/) 40 meq in 1,000 mls @ 125 mls/hr IV NOW ONE Stop: 06/13/17 16:58 Last Admin: 06/13/17 09:08 Dose: 125 mls/hr Magnesium Oxide (Mag Ox) 200 mg PO DAILY [facility] Last Admin: 06/13/17 09:06 Dose: 200 mg Morphine Sulfate (Morphine Sulfate) 2 mg IVP Q4HR PRN PRN Reason: Abdominal Pain Stop: 06/19/17 17:01 Non-Formulary Medication (Azathioprine [Imuran]) 150 mg PO QAM [facility] Non-Formulary Medication (Mesalamine [Apriso]) 1.5 gm PO DAILY [facility] Ondansetron HCl (Zofran) 4 mg IVP Q4H PRN PRN Reason: NAUSEA Temazepam (Restoril) 15 mg PO QHS PRN PRN Reason: INSOMNIA Physical Exam - Vital Signs Vital Signs: Vital Signs - Last 24 Hrs Temp Pulse Resp BP Pulse Ox 06/13/17 07:35 98.3 F 89 18 109/60 96 06/13/17 07:27 16 06/13/17 07:13 79 15 114/66 99 06/13/17 07:00 98.3 F 94 H 16 104/62 94 L 06/13/17 03:00 98.2 F 89 16 116/61 95 06/12/17 21:38 98.3 F 78 18 107/62 95 06/12/17 21:00 75 18 06/12/17 19:00 98.7 F 87 16 113/69 96 06/12/17 17:07 16 06/12/17 17:00 98.3 F 84 18 123/74 96 - General General Appearance: Alert, Oriented x3, Cooperative, Mild distress Limitations: No limitations - Head Head exam: Normal inspection - Eye Eye exam: Normal appearance, PERRL, EOMI Pupils: Normal accommodation - ENT ENT exam: Normal exam, Mucous membranes moist, Normal external ear exam, Normal orophraynx Ear exam: Normal external inspection. negative: External canal tenderness Nasal Exam: Normal inspection. negative: Discharge, Sinus tenderness Mouth exam: Normal external inspection, Tongue normal Teeth exam: Normal inspection. negative: Dental caries Throat exam: Normal inspection. negative: Tonsillar erythema, Tonsillar exudate - Neck Neck exam: Normal inspection, Full ROM. negative: Tenderness - Respiratory Respiratory exam: Decreased breath sounds (bilateral bases). negative: Respiratory distress - Cardiovascular Cardiovascular Exam: Regular rate, Normal rhythm, Normal heart sounds - GI/Abdominal GI/Abdominal exam: Soft, Normal bowel sounds, Guarding, Tenderness - Rectal Rectal exam: Deferred - exam: Deferred - Extremities Extremities exam: Normal inspection, Full ROM, Normal capillary refill. negative: Tenderness - Back Back exam: Reports: Normal inspection, Full ROM. Denies: Muscle spasm, Rash noted, Tenderness - Neurological Neurological exam: Alert, CN II-XII intact, Normal gait, Oriented X3 - Psychiatric Psychiatric exam: Normal affect, Normal mood - Skin Skin exam: Dry, Intact, Normal color, Warm Results - Labs Result Diagrams: 06/13/17 06:09 06/13/17 06:09 Labs Last 24 Hours: Laboratory Results - last 24 hr 06/12/17 06/12/17 06/13/17 17:00 22:00 06:09 WBC 10.8 RBC 4.47 Hgb 14.0 Hct 43.8 MCV 98.0 H MCH 31.3 MCHC 32.0 RDW 13.2 Plt Count 333 MPV 10.7 H Neutrophils % 68.0 Band Neutrophils % 3.0 Eosinophils % Not Reportable Basophils % Not Reportable Lymphocytes 13.0 L Monocytes 16.0 H Basophils 0.0 Eosinophil Count 0.0 Sodium Potassium Chloride Carbon Dioxide Anion Gap BUN Creatinine Estimated GFR POC Glucose Cancelled Cancelled Random Glucose Calcium Total Bilirubin AST ALT Alkaline Phosphatase Total Protein Albumin Globulin Albumin/Globulin Ratio 06/13/17 06:09 WBC RBC Hgb Hct MCV MCH MCHC RDW Plt Count MPV Neutrophils % Band Neutrophils % Eosinophils % Basophils % Lymphocytes Monocytes Basophils Eosinophil Count Sodium 140 Potassium 2.9 L* Chloride 106 Carbon Dioxide 19.0 L Anion Gap 15.0 BUN 8 Creatinine 0.5 Estimated GFR > 60 POC Glucose Random Glucose 89 Calcium 8.1 L Total Bilirubin 0.50 AST 13 ALT 8 Alkaline Phosphatase 76 Total Protein 7.0 Albumin 3.8 L Globulin 3.2 Albumin/Globulin Ratio 1.2 VTE H&P Assessment - Risk for VTE Risk for VTE: Yes Risk Level: Low Risk Assessment Date: 06/13/17 (current everyday smoker, decreased mobity due to abdominal pain) Risk Assessment Time: 10:00 VTE Orders Placed or Will Be Placed: Yes Plan - Inpatient Certification Inpatient Certification: Admit to inpatient care: Based on my medical assessment, after consideration of patient's risk factors (age, co-morbidities and patient presenting symptoms and acuity), I expect that this patient will remain in the hospital greater than or equal to two midnights and that the services needed warrant inpatient care because: Patient Risk Factors: [Crohn's disease, partial SBO, smoker] Estimated length of stay: [] The patient may reasonably be expected to be discharged or transferred to a hospital within 96 hours after admission to [facility]. Services needed: [General surgery consult] Post hospital care (if known): [] I certify that my determination is in accordance with my understanding of Medicare requirements for reasonable and necessary inpatient services. 06/13/17 10:01 - Detailed Diagnosis and Plan (1) Small bowel obstruction, partial Current Visit: Yes Status: Acute Base Code: K56.600 - PARTIAL INTESTINAL OBSTRUCTION, UNSPECIFIED TO CAUSE Comment: 06/13/17- CT on 06/12/17 demonstrated post-op proximal colon resection with ileocolic anastomosis RLQ with some dilation of the distal small bowel. Plan to treat with IV hyrdation- 0.9% NaCl at 125ml/hr, pain management with Dilaudid 0.5mg q4h prn pain, and consult general surgery- Dr. Hanna. If no surgical intervention needed, will plan to advance diet as tolerated and change IV medications to PO. (2) Crohns disease Current Visit: Yes Status: Acute Qualifiers: Gastrointestinal tract location: large intestine Base Code: K50.90 - CROHN'S DISEASE, UNSPECIFIED, WITHOUT COMPLICATIONS Comment: 06/13/17- Crohns disease daignosed in 2009, demonstrated on abdominal CT from 04/19/17 and again on 06/12/17. Manage with IV hydration- NS @ 125ml/hr , pain control with 0.5mg IV dilaudid q4h prn pain and morphone 2mg IV q4h prn pain, immunosuppressants- Imuran 150mg PO qam. Pt. continues to have about 5 loose stools/day, per pt.-unchanged from norm. (3) DVT prophylaxis Current Visit: Yes Status: Acute Base Code: [id number] - Comment: 06/13/17- Pt. is low risk for DVT based on every day smoking status and decreased mobility from abdominal pain associated with Crohns and SBO. Plan to order Lovenox 40mg SC daily if no surgical intervention required by Dr. Hanna. (4) Full code status Current Visit: Yes Status: Acute Base Code: Z78.9 - OTHER SPECIFIED HEALTH STATUS Comment: 06/13/17- Pt. is full code status
[2017-06-13] MEDS ORDERED: AZATHIOPRINE 150 MG PO SCH (10:00)
[2017-06-13] MEDS ORDERED: MESALAMINE 1.5 GM PO SCH (10:00)
[2017-06-13] MEDS: MORPHINE SULFATE 5 MG/ML PFS IVP PRN ×2 (11:50→15:44)
--- NOTE | 2017-06-13 12:50 | Medical Records Consult ---
DATE OF CONSULTATION: 06/12/2017 REASON FOR CONSULTATION: Abdominal pain, partial small bowel obstruction secondary to Crohn disease. HISTORY OF PRESENT ILLNESS: The patient is a very pleasant 41-year-old female with a history of Crohn disease and prior bowel resection for this who presents with 24-48 hours of worsening abdominal pain and nausea. She has had symptoms like this before and has had admissions in the past for partial small bowel obstruction. She has never required surgery other than the one resection before by Dr. Marbin Birch. She denies any fevers. Denies any current vomiting at this time. PAST MEDICAL HISTORY: Positive for Crohn disease. PAST SURGICAL HISTORY: Positive for a bowel resection. SOCIAL HISTORY: Positive for tobacco. FAMILY HISTORY: Noncontributory. REVIEW OF SYSTEMS: A 12-point negative review of systems was performed except for the pertinent items noted in the HPI. PHYSICAL EXAMINATION: VITAL SIGNS: Afebrile. Vital signs are stable. HEART: Regular rate and rhythm. LUNGS: Clear to auscultation bilaterally. ABDOMEN: Soft. Mildly and diffusely tender. Mildly distended without any signs of peritonitis. EXTREMITIES: No lower extremity edema. NEUROLOGIC: Cranial nerves II-XII grossly intact. ASSESSMENT AND PLAN: CT reviewed. Positive for likely partial small bowel obstruction secondary to Crohn disease. She will be admitted to the hospital service and we will initially treat conservatively with IV hydration and bowel rest. She does see Dr. Neo Sotelo of GI and does take Crohn's medications including immunomodulators. No NG tube needed at this time but should her symptoms worsen, she may need NG tube and we will follow serial abdominal exams. I will also update Dr. Birch on her status, as he is known to her. [facility]
[2017-06-13 16:41] LABS: BLOOD UREA NITROGEN 5 mg/dL (6-20); CREATININE 0.5 mg/dL (0.5-0.9); EST GLOMERULAR FILTRATION RATE > 60 mL/min; GLUCOSE,RANDOM 81 mg/dL (74-109)
[2017-06-13] MEDS: SOD CHLOR 0.9% WITH KCL 40MEQ 40 MEQ/1,000 ML IV.SOLN IV PRN (17:00)
[2017-06-13] MEDS ORDERED: HYDROCODONE/APAP 7.5/325MG TABLET PO PRN (19:23)
[2017-06-13] MEDS: HYDROCODONE/APAP 7.5/325MG TABLET PO PRN (19:39)
[2017-06-14] MEDS: HYDROCODONE/APAP 7.5/325MG TABLET PO PRN (02:01)
[2017-06-14] MEDS: SOD CHLOR 0.9% WITH KCL 40MEQ 40 MEQ/1,000 ML IV.SOLN IV PRN (02:44)
[2017-06-14 06:51] LABS: BLOOD UREA NITROGEN 3 mg/dL (6-20); CREATININE 0.4 mg/dL (0.5-0.9); EST GLOMERULAR FILTRATION RATE > 60 mL/min; GLUCOSE,RANDOM 87 mg/dL (74-109)
--- NOTE | 2017-06-14 09:56 | Discharge Summary ---
Providers Discharge Summary Date: 06/14/17 Date of admission: 06/12/17 16:41 Expected Date of Discharge: 06/14/17 Attending physician: Miguelangel Lopez Primary care physician: Jade Powell N.P. Consults: Consult Orders 06/13/17 12:52 Consult NOW Consulting Provider: VIGNESH ABAD Physician Instructions: Reason For Exam: Crohns flare up 06/14/17 08:13 Consult NOW Consulting Provider: Marbin Birch Physician Instructions: Reason For Exam: SBO -Schedule as OP 06/18/2016 Physical Exam - Vital Signs Vital Signs: Vital Signs - Last 24 Hrs Temp Pulse Resp BP Pulse Ox 06/14/17 06:00 98.6 F 98 H 18 122/75 95 06/14/17 00:00 97.6 F 90 18 116/71 96 06/13/17 21:00 90 16 06/13/17 20:00 98.7 F 90 16 115/64 96 06/13/17 15:00 99.0 F 87 18 115/63 97 06/13/17 11:00 98.2 F 78 18 110/50 98 - General General Appearance: Alert, Oriented x3, Cooperative, Mild distress Limitations: No limitations - Head Head exam: Normal inspection - Eye Eye exam: Normal appearance, PERRL, EOMI Pupils: Normal accommodation - ENT ENT exam: Normal exam, Mucous membranes moist, Normal external ear exam, Normal orophraynx Ear exam: Normal external inspection. negative: External canal tenderness Nasal Exam: Normal inspection. negative: Discharge, Sinus tenderness Mouth exam: Normal external inspection, Tongue normal Teeth exam: Normal inspection. negative: Dental caries Throat exam: Normal inspection. negative: Tonsillar erythema, Tonsillar exudate - Neck Neck exam: Normal inspection, Full ROM. negative: Tenderness - Respiratory Respiratory exam: Decreased breath sounds (bilateral bases). negative: Respiratory distress - Cardiovascular Cardiovascular Exam: Regular rate, Normal rhythm, Normal heart sounds - GI/Abdominal GI/Abdominal exam: Soft, Normal bowel sounds, Guarding, Tenderness - Rectal Rectal exam: Deferred - exam: Deferred - Extremities Extremities exam: Normal inspection, Full ROM, Normal capillary refill. negative: Tenderness - Back Back exam: Reports: Normal inspection, Full ROM. Denies: Muscle spasm, Rash noted, Tenderness - Neurological Neurological exam: Alert, CN II-XII intact, Normal gait, Oriented X3 - Psychiatric Psychiatric exam: Normal affect, Normal mood - Skin Skin exam: Dry, Intact, Normal color, Warm Hospitalization - Hospitalization Admission Diagnosis: Partial SBO, Crohn's Disease - Problem List/Discharge Diagnosis (1) Small bowel obstruction, partial Current Visit: Yes Status: Acute Base Code: K56.600 - PARTIAL INTESTINAL OBSTRUCTION, UNSPECIFIED TO CAUSE Comment: 06/14/17- CT on 06/12/17 demonstrated post-op proximal colon resection with ileocolic anastomosis RLQ with some dilation of the distal small bowel. General surgery consulted- Dr. Birch, he evaluated pt. and recommended to continue to advance diet as tolerated and follow up with him in clinic next week. Pt. has appt. with Dr. Birch on 06/18/[address] enterography. Pt. has tolerated PO pain medication, Girard 7.5/325mg and her last dose was at 0200. She currently feels that her pain in under control and does not feel she needs any pain medications at home. She is also tolerating soft diet well with no complaints. Plan to discharge this afternoon. (2) Crohns disease Current Visit: Yes Status: Acute Discharge Diagnosis: Gastrointestinal tract location: large intestine Base Code: K50.90 - CROHN'S DISEASE, UNSPECIFIED, WITHOUT COMPLICATIONS Comment: 06/14/17- Crohns disease daignosed in 2009, demonstrated on abdominal CT from 04/19/17 and again on 06/12/17. Transitioned from IV hydration to PO fluids that she is tolerating well, pain now controlled with PO meds (Girard 7.5/ 325mg) Plan to continue immunosuppressant therapy- Imuran 150mg PO qam and Humira pen at home. Pt. continues to have about 5 loose stools/day, per pt.- unchanged from norm. Plan to discharge today. F/U with Dr. Hanna on 06/[address] Ureña 07/26/17. (3) Hypokalemia Current Visit: Yes Status: Acute Base Code: E87.6 - HYPOKALEMIA Comment: - Resolved. Potassium of 2.7 when she was admitted on 06/12/17. She received 40 mEq of potassium chloride in 1 liter of 0.9% NaCl at 125/hr. Her potassium was 3.4 today. Hypokalemia likely secondary to GI loss from inability to tolerate her PO supplement. Plan to resume normal potassium supplement and follow up with Jade Powell NP on 06/21/17. Repeat lab ordered to be completed prior to follow up appointment. (4) DVT prophylaxis Current Visit: Yes Status: Acute Base Code: [id number] - Comment: 06/14/17- Pt. is low risk for DVT based on every day smoking status and decreased mobility from abdominal pain associated with Crohns and SBO. Prohylaxis not ordered because planning to discharge this afternoon and pt's activity returned to baseline. (5) Full code status Current Visit: Yes Status: Acute Base Code: Z78.9 - OTHER SPECIFIED HEALTH STATUS Comment: 06/14/17- Pt. remains full code status - Hospitalization Course Disposition: Home, Self-Care Hospital Course: Fabiana is a 41 year-old female who was admitted on 06/12/17 for management of small bowel obstruction and Crohn's disease. Her history includes Crohn's disease (diagnosed in 2009), previous SBO (04/2017), anxiety, depression, smoker (0.5 ppd), cervical cancer, and several abdominal surgeries ( appendectomy, cholecystectomy, ileocecectomy). She was previously admitted from 04/19/17 to 04/21/17 for a small bowel obstruction. Her general surgeon is Dr. Hanna and she sees Dr. Abad for GI. She presented to the ED on 06/12/17 because she had been experiencing abdominal pain and vomiting for 2 days. She vomited greater than 10 times in that time and also experienced chills. She states that her pain is similar to the pain she experienced during a previous admission from 04/19 to 04/21. She has about 5 loose stools/day, she states that is her norm. In the ED, she remained afebrile and her vital signs were stable- BP 111/72, RR 16, HR 105, 98 % on room air. A CMP and CBC demonstrated a low potassium of 2.9. An abdominal CT demonstrated a post-op proximal colon resection with ileocolic anastmosis RLQ, some dilation of distal small bowel, focal narrowing with wall enhancement in the lower sigmoid colon- recurrent Crohn's. Her CT was compared to a previous CT on 04/19/17 and remains unchanged. Due to her history of SBO and Crohn's, she was admitted for management of SBO with IV hydration and pain management. Dr. Hanna was consulted and she was placed NPO. 06/13/17 0900: Fabiana is resting in bed. She states that her abdominal pain is a 7/10 and that IV dilaudid is helpful to her. She denies nausea and states that she has not vomited since yesterday. She states that she continues to have loose stools, but that it is unchanged from her norm. Her vital signs today remain stable, BP 109/60, HR 89, RR 18, T 98.3F and 96% RA. Her K+ this morning was 2.9 and is presently being treated with 40mEq potassium chloride IV. 06/14/17: Fabiana's pain is now controlled, she has not required IV pain medication since yesterday. Her last dose of Girard as at 0200 and she feels that she does not need any more pain medication at this time or at home. She is tolerating a soft diet well, no nausea/vomiting/increased abdominal pain. Her bowel movements continue to be at baseline for her. Pt. is feeling ready to go home. Abnormal Labs: Abnormal Lab Results 06/13/17 06/13/17 06/13/17 Range/Units 06:09 06:09 16:15 MCV 98.0 H (81-97) fl MPV 10.7 H (7.4-10.4) fl Lymphocytes 13.0 L (16-45) % Monocytes 16.0 H (0-9) % Potassium 2.9 L* 3.1 L (3.4-4.5) mmol/L Chloride (98-107) mmol/L Carbon Dioxide 19.0 L 18.0 L (22-29) mmol/L BUN 5 L (6-20) mg/dL Creatinine (0.5-0.9) mg/dL Calcium 8.1 L 7.9 L (8.6-10.0) mg/dL Albumin 3.8 L (4.0-5.0) g/dL 06/14/17 Range/Units 06:28 MCV (81-97) fl MPV (7.4-10.4) fl Lymphocytes (16-45) % Monocytes (0-9) % Potassium (3.4-4.5) mmol/L Chloride 108 H (98-107) mmol/L Carbon Dioxide 17.0 L (22-29) mmol/L BUN 3 L (6-20) mg/dL Creatinine 0.4 L (0.5-0.9) mg/dL Calcium 8.0 L (8.6-10.0) mg/dL Albumin (4.0-5.0) g/dL Condition at Discharge: (2) Stable Discharge Diagnosis: Partial SBO, Crohns Disease VTE Discharge VTE Reason For No Overlap Therapy: Not Indicated (Not indicated for Chohns and pt.'s activity level returning to baseline.) Discharge Medications - Discharge Medications Home Medications: Ambulatory Orders Adalimumab [Humira Pen] 40 mg SQ ASDIR 01/14/15 [Last Taken 06/10/17] Dicyclomine HCl 10 mg PO QID 01/14/15 [Last Taken 06/10/17] Folic Acid 1 mg PO DAILY 01/14/15 [Last Taken 06/10/17] Magnesium 200 mg PO DAILY 01/14/15 [Last Taken 06/10/17] Mesalamine [Apriso] 1.5 gm PO DAILY 01/14/15 [Last Taken 06/10/17] Azathioprine [Imuran] 150 mg PO QAM tab 11/25/15 [Last Taken 06/10/17] Medroxyprogesterone Acetate [Depo-Provera] 150 mg IM [id number] ml 02/09/16 [Last Taken 06/10/17] Cyanocobalamin (Vitamin B-12) [Vitamin B-12] 100 mcg PO DAILY tab 03/30/16 [ Last Taken 06/10/17] Discharge Plan - Discharge Instructions Activity at Discharge: Resume Usual Activities As Tolerated Diet at Discharge: Advance to Usual Diet Additional Instructions: Follow up with Dr. Birch on 06/18/17 Follow up with Jade Powell on 06/21/17 at 12:00. Please have labs done at least 24 hours prior to appointment Follow up with Dr. Abad on 07/26/17 at 7:30 Resume home medications Continue to advance diet as tolerated Please call with questions or concerns. Return to ED for any worsening symptoms. Quality Measures - Quality Measures Quality Measures: Documentation of Current Medications in Medical Record, Screening for High Blood Pressure and F/U Documented - Current Medications Quality Measure: Measure #130: Documentation of Current Medications View Details: Yes Documentation of Current Medications: <Current Medications Documented/Reviewed> [G8427] - Blood Pressure Screening Quality Measure: Screening for High Blood Pressure and Follow-Up Documented View Details: Yes Does Patient Have Any of the Following: No Blood Pressure Classification: Pre-Hypertensive BP Reading Systolic Measurement: 119 Diastolic Measurement: 87 Screening for High Blood Pressure: < Pre-Hypertensive BP, F/U Documented > [ G8950] Pre-Hypertensive Follow-up Interventions: Referral to alternative/primary care provider. - Elder Abuse Suspicion Index EASI Reference Information: Evelin OCHOA, Srikanth C, Lan D, Hillary Noble.Development and validation of a tool to assist physicians identification of elder abuse: The Elder Abuse Suspicion Index (EASI ). Journal of Elder Abuse and Neglect, 2008; 20 (3): 276-300.
[2017-06-14] MEDS: BUSPIRONE 5 MG TABLET PO SCH (10:05)
[2017-06-14] MEDS: DULOXETINE HCL 30 MG CAPSULE.DR PO SCH (10:05)
[2017-06-14] MEDS: MAGNESIUM OXIDE 400 MG TABLET PO SCH (10:06)
[2017-06-14] MEDS: FOLIC ACID 1 MG TABLET PO SCH (10:06)
--- NOTE | 2017-06-14 12:30 | Medical Records Consult ---
DATE: 06/13/2017 The patient is a 41-year-old female who was admitted yesterday for partial small bowel obstruction. Today patient feels much better. She has no nausea, no vomiting. She states that she is passing gas and has had bowel movements today as well. She is currently on a liquid diet. Her vital signs are stable. She is afebrile. Heart is regular. Lungs are clear. Abdomen is soft, nontender. She has a midline hernia noted. Extremities show no trace of edema. Laboratory values reveal a normal white count at 10.8. She does have low potassium at 2.9. IMPRESSION: Partial small bowel obstruction. Clinically, she is doing well. I would recommend increasing her diet to a soft diet. Most likely she can be discharged tomorrow. I will see her in followup in the clinic on Sunday. At that point, we will order an outpatient CT enterography to better delineate the narrowing proximal to her anastomosis. This was discussed in detail with the patient. She is in agreement. Thank you for this referral. SHASHANK
== END 2017-06-14 12:00 | disposition home or self-care (01) | DRG 386 ==
LOC: ER 11:00 → MEDSURG 16:41
PROVIDERS: ADMIT Internal Medicine; ATTEND Internal Medicine
DX: K50.012 Crohn's disease of small intestine with intestinal obstruction (principal); F17.210 Nicotine dependence, cigarettes, uncomplicated; E87.6 Hypokalemia
CPT/HCPCS: 83690; 85025; 80053; 81001; 74177; Q9967; J2405; J1170 ×3; 80048; 83735; 85027; 96361; 96374; 96375; 96376; 99223; 99239; 99285; J7030

== ENCOUNTER 2017-06-21 10:14 | Inpatient (IN) | payer MEDICARE, MEDICAID ==
[2017-06-21] MEDS ORDERED: ONDANSETRON HCL IV 4 MG/2 ML VIAL IV ONE (10:32)
[2017-06-21] MEDS ORDERED: 0.9 % SODIUM CHLORIDE 1,000 ML BAG IV ONE (10:32)
[2017-06-21] MEDS ORDERED: HYDROMORPHONE HCL 1 MG/ML SYRINGE IVP ONE ×2 (10:33→12:28)
--- NOTE | 2017-06-21 10:39 | Emergency Department Record ---
History of Present Illness - General Chief Complaint: Abdominal Pain Stated Complaint: CROHNS Time Seen by Provider: 06/21/17 10:26 Source: Patient Mode of Arrival: Ambulatory Limitations: No limitations - History of Present Illness Initial Comments: The patient is here due to a 2 week hx of nausea, vomiting, loose stools and diffuse AP. She was admitted to the hospital a week ago for a SBO and since discharge she has not felt better. The patient states she has a long hx of Crohn 's dz and has had multiple surgeries on her intestines. She did see her Surgeon Dr. Birch 3 days ago and was set up for a CTE yesterday but did not have it completed. There is no reported hx of dysuria, fever, chills, or back pain. MD Complaint: Abdominal pain Onset/Timin -: Week(s) Location: Diffuse Radiation: None Severity: Moderate Quality: Other Consistency: Intermittent Improves With: Medication, Rest Worsens With: Movement Associated Symptoms: Diarrhea, Vomiting - Related Data Patient : No Allergies Allergy/AdvReac Type Severity Reaction Status Date / Time steroids AdvReac Intermediate crying, Uncoded 06/21/17 10:18 anger, emotionally distressed Travel Screening - Travel/Exposure Within Last 30 Days Have you traveled within the last 30 days?: No - Travel/Exposure Within Last Year Have you traveled outside the [place] in the last year?: No - Additonal Travel Details Have you been exposed to anyone with a communicable illness?: No - Travel Symptoms Symptom Screening: None Review of Systems Constitutional: Denies: Chills, Fever Eyes: Denies: Eye discharge ENT: Denies: Congestion Respiratory: Denies: Cough, Dyspnea Past Medical History - SOCIAL HISTORY Smoking Status: Current every day smoker Alcohol Use: None Drug Use: None - RESPIRATORY Hx Respiratory Disorders: No - CARDIOVASCULAR Hx Cardio Disorders: No - NEURO Hx Neuro Disorders: No - GI Hx GI Disorders: Yes Hx Abdominal Pain: Yes Hx Celiac Disease: No Hx Crohn's Disease: Yes (2011) Hx Diverticulitis: No Hx GI Bleed: No Hx Reflux: No Hx Hepatitis/Jaundice: No Hx Hiatal Hernia: No Hx Irritable Bowel: No Hx Liver Disease: No Hx Nausea/Vomiting: Yes Hx Obstructive Bowel: Yes (today) Hx Pancreatitis: No Hx Rectal Bleeding: No Hx Ulcer: No Hx Wt Loss/Wt Gain: Yes Hx Cirrhosis: No Hx of Polyps: Yes - Hx Genitourinary Disorders: No - ENDOCRINE Hx Endocrine Disorders: No Hx Diabetes: No Hx Thyroid Disease: No - MUSCULOSKELETAL Hx Musculoskeletal Disorders: No - PSYCH Hx Psych Problems: Yes Hx Anxiety: Yes (meds) Hx Depression: Yes (meds) - HEMATOLOGY/ONCOLOGY Hx Hematology/Oncology Disorders: Yes Hx Cancer: Yes (Cervical, hpv) Family Medical History Any Significant Family History?: No Physical Exam - General General Appearance: Alert, Oriented x3, Cooperative, No acute distress - Head Head exam: Atraumatic, Normocephalic, Normal inspection - Eye Eye exam: Normal appearance, PERRL - ENT Throat exam: Normal inspection. negative: Tonsillar erythema, Tonsillar exudate - Neck Neck exam: Normal inspection, Full ROM. negative: Tenderness - Respiratory Respiratory exam: Normal lung sounds bilaterally. negative: Respiratory distress - Cardiovascular Cardiovascular Exam: Regular rate, Normal rhythm, Normal heart sounds - GI/Abdominal GI/Abdominal exam: Soft, Diminished bowel sounds, Tenderness (There is diffuse tenderness in all 4 quads.). negative: Guarding, Rebound, Rigid - Extremities Extremities exam: Normal inspection, Full ROM, Normal capillary refill. negative: Tenderness - Neurological Neurological exam: Alert. negative: Motor sensory deficit Course Vital Signs 06/21/17 10:20 Temperature 97.4 F L Pulse Rate 114 H Respiratory 20 Rate Blood Pressure 129/82 Pulse Ox 98 - Reevaluation(s) Reevaluation #1: The patient is doing better but is still having some pain. The nausea has resolved. I did discuss the plan to admit her to the hospital and she does agree. 06/21/17 12:29 Reevaluation #2: The patient is doing much better at this time. She states her nause and pain are under control. I did discuss the case with Dr. Birch and he agrees with the plan to admit here at [facility]. I then did discuss the case with Dr. Patten and he does agree to the admission. 06/21/17 13:06 Medical Decision Making - Data Complexity MDM Data: Labs Ordered and/or Reviewed, X-Ray Ordered and/or Reviewed - Lab Data Result diagrams: 06/21/17 10:32 06/21/17 11:15 - Radiology Data Radiology results: Report reviewed (Xrays: Few differential air fluid levels, poss. partial SBO.) Disposition Disposition: Admit Clinical Impression: Small bowel obstruction, partial Crohn's colitis Qualifiers: Digestive disease complication type: unspecified complication Qualified Code(s) : K50.119 - Crohn's disease of large intestine with unspecified complications Disposition: Still a Patient at [facility] Decision to Admit: Admit from ER Decision to Admit Date: 06/21/17 Decision to Admit Time: 13:07 Accepting Physician: Earline Time Discussed w/Accepting Physician: 13:07 Condition: (2) Stable Time of Disposition: 13:07 Quality - Quality Measures Quality Measures: N/A - Blood Pressure Screening View Details: Yes Does Patient Have Any of the Following: No Blood Pressure Classification: Normal BP Reading Systolic Measurement: 115 Diastolic Measurement: 73 Screening for High Blood Pressure: < Normal BP, F/U Not Required > [G8783]
[2017-06-21 11:27] LABS: HEMATOCRIT 43.2 % (35.0-47.0); HEMOGLOBIN 14.6 gm/dl (11.6-16.0); MEAN CELL VOLUME 94.3 fl (81-97); MEAN CORPUSCULAR HEMOGLOBIN 31.9 pg (27-33); MEAN CORPUSCULAR HGB CONC 33.8 g/dl (32-36); MEAN PLATELET VOLUME 10.1 fl (7.4-10.4); PLATELET COUNT 459 K/uL (130-400); RED BLOOD COUNT 4.58 M/uL (3.80-5.40); RED CELL DISTRIBUTION WIDTH 13.3 % (11.5-14.5); WHITE BLOOD COUNT W/O DIFF 12.7 K/uL (4.2-12.2)
[2017-06-21 11:41] LABS: BLOOD UREA NITROGEN 13 mg/dL (6-20); CREATININE 0.6 mg/dL (0.5-0.9); EST GLOMERULAR FILTRATION RATE > 60 mL/min; TOTAL PROTEIN 7.7 g/dL (6.6-8.7)
[2017-06-21 11:43] LABS: AMYLASE 43 U/L (28-100); GLUCOSE,RANDOM 111 mg/dL (74-109)
[2017-06-21 11:46] LABS: ALBUMIN 3.7 g/dL (4.0-5.0); ALKALINE PHOSPHATASE 86 U/L (35-104); ALT/SGPT 7 U/L (<33); AST/SGOT 13 U/L (10.0-35.0); LIPASE 27 U/L (13-60)
[2017-06-21 11:47] LABS: BILIRUBIN,DIRECT < 0.2 mg/dL (0-0.3)
[2017-06-21] MEDS ORDERED: POTASSIUM CHLORIDE 20 MEQ TABLET PO ONE ×2 (11:49→17:02)
[2017-06-21 12:04] LABS: PLATELET ESTIMATE NORMAL (NORMAL)
[2017-06-21] MEDS ORDERED: Non-Formulary MISC (Adalimumab [Humira Pen] 40 MG) SQ SCH (14:03)
[2017-06-21] MEDS ORDERED: ONDANSETRON HCL IV 4 MG/2 ML VIAL IVP PRN (14:03)
[2017-06-21] MEDS ORDERED: POTASSIUM CHLORIDE/D5-0.9%NACL 20 MEQ/1,000 ML BAG IV ONE (14:03)
[2017-06-21] MEDS ORDERED: POTASSIUM GLUCONATE 99 MG PO SCH (16:00)
[2017-06-21] MEDS: PANTOPRAZOLE SODIUM IV 40 MG VIAL IV SCH (16:05)
[2017-06-21] MEDS: HYDROMORPHONE HCL 1 MG/ML SYRINGE IVP PRN ×2 (17:45→22:04)
[2017-06-21] MEDS: BUSPIRONE 5 MG TABLET PO SCH (21:20)
[2017-06-22] MEDS: HYDROMORPHONE HCL 1 MG/ML SYRINGE IVP PRN ×5 (02:12→20:00)
[2017-06-22 06:25] LABS: HEMATOCRIT 39.7 % (35.0-47.0); HEMOGLOBIN 13.1 gm/dl (11.6-16.0); MEAN CELL VOLUME 96.6 fl (81-97); MEAN CORPUSCULAR HEMOGLOBIN 31.9 pg (27-33); MEAN PLATELET VOLUME 9.8 fl (7.4-10.4); PLATELET COUNT 412 K/uL (130-400); RED BLOOD COUNT 4.11 M/uL (3.80-5.40); RED CELL DISTRIBUTION WIDTH 13.4 % (11.5-14.5)
[2017-06-22 06:39] LABS: BLOOD UREA NITROGEN 11 mg/dL (6-20); CREATININE 0.5 mg/dL (0.5-0.9); EST GLOMERULAR FILTRATION RATE > 60 mL/min; GLUCOSE,RANDOM 109 mg/dL (74-109)
--- NOTE | 2017-06-22 07:15 | RADIOLOGY REPORT ---
EXAM: ACUTE ABDOMEN SERIES HISTORY: ABDOMINAL PAIN AND DISTENTION. CROHN'S DISEASE. TECHNIQUE: AP supine and upright views of the abdomen were obtained as well as an upright PA view of the chest. Comparison: CT of the abdomen and pelvis with contrast dated 06/12/17. FINDINGS: There is gas and fluid distention of the splenic flexure of the colon without dilatation. There are several additional air fluid levels in the upper abdomen, several of which are within the small bowel. There is at least one dilated loop of small bowel present in the upper abdomen measuring up to 4.3 cm. No new mass or organomegaly identified. No new suspicious calcification. Small calcifications in the inferior pelvis are likely vascular in origin. Surgical chain suture is again noted in the right lower quadrant. No free intraperitoneal air. The cardiomediastinal silhouette is normal in size and configuration. The pulmonary vasculature is nondilated. The lungs and pleural spaces appear clear. IMPRESSION: 1. ABNORMAL SMALL BOWEL GAS PATTERN REDEMONSTRATED CONSISTENT WITH ENTERITIS OR PARTIAL OBSTRUCTION. THE OVERALL NUMBER OF VISUALIZED MILDLY DILATED SMALL BOWEL LOOPS APPEARS DECREASED. LIQUID STOOL AGAIN NOTED WITHIN A NONDILATED COLON. NO FREE INTRAPERITONEAL AIR. 2. NO EVIDENCE OF ACUTE CARDIOPULMONARY DISEASE. JOB NUMBER: [id number] [facility]
[2017-06-22] MEDS: POTASSIUM CHLORIDE 20 MEQ TABLET PO SCH ×2 (08:15→16:11)
[2017-06-22] MEDS: POTASSIUM CHL 20MEQ IN 1L NS 20 MEQ/1,000 ML BAG IV SCH ×2 (08:19→18:04)
[2017-06-22] MEDS: PANTOPRAZOLE SODIUM IV 40 MG VIAL IV SCH (10:25)
[2017-06-22] MEDS: DULOXETINE HCL 30 MG CAPSULE.DR PO SCH (10:26)
[2017-06-22] MEDS: BUSPIRONE 5 MG TABLET PO SCH ×2 (10:27→22:20)
[2017-06-22 10:28] LABS: HCG,QUALITATIVE URINE NEGATIVE (NEGATIVE); URINE APPEARANCE CLEAR; URINE BILIRUBIN SMALL (NEGATIVE); URINE BLOOD NEGATIVE (NEGATIVE); URINE COLOR YELLOW; URINE GLUCOSE (UA) NEGATIVE (NEGATIVE); URINE KETONE TRACE (NEGATIVE); URINE LEUKOCYTE ESTERASE NEGATIVE (NEGATIVE); URINE NITRITE NEGATIVE (NEGATIVE); URINE PROTEIN TRACE (NEGATIVE); URINE UROBILINOGEN 0.2 E.U./dL (0.20 - 1.00)
--- NOTE | 2017-06-22 10:31 | History and Physical Report ---
DATE OF ADMISSION: 06/21/2017 Attending Physician: Abdifatah Patten DO CHIEF COMPLAINT: Abdominal pain, vomiting, diarrhea, flare-up of Crohn's disease after taking the prep for a CTE. HISTORY OF PRESENT ILLNESS: This 41-year-old female with Crohn's disease for many years, recently in the hospital for a flare of her Crohn's approximately 1 to [address] Birch at that time and she was set up for an outpatient CT enterography, but she took 1 dose of the medication for the prep and started vomiting, having diarrhea with abdominal pain and came into the emergency department, seen by Dr. Raza and admitted to the hospital for IV pain control, IV fluids, and correction of her potassium. MEDICATIONS ON ADMISSION: 1. Potassium gluconate 99 mg t.i.d. 2. Mesalamine 1.5 grams daily. 3. Depo-Provera 150 mg every 3 months. 4. Magnesium 200 mg daily. 5. Folic acid 1 mg daily. 6. Cymbalta 30 mg daily. 7. Bentyl 10 mg q.i.d. p.r.n. 8. Vitamin B12 100 mcg daily. 9. Buspirone 30 mg b.i.d. 10. Imuran 150 mg q.a.m. 11. Humira 40 mg subcutaneous. ALLERGIES: STEROIDS. FAMILY PSYCHOSOCIAL HISTORY: No significant family history. Current every day smoker of cigarettes, about a pack a day. No alcohol or drug use. REVIEW OF SYSTEMS: HEENT: No upper respiratory infection symptoms, cough, cold, or congestion. CARDIOVASCULAR: No chest pain, palpitations, or arrhythmias. RESPIRATORY: No cough, cold, or congestion. GASTROINTESTINAL: See chief complaint. She has abdominal pain, vomiting, and diarrhea. History of Crohn's disease. No dysphagia. GENITOURINARY: No dysuria, hematuria, or frequency or burning on urination. MUSCULOSKELETAL: No joint or bone abnormalities. NEUROLOGIC: No CVA paralysis or paresthesias. GYNECOLOGIC: No abnormal lumps in her breasts or abnormal vaginal bleeding. ENDOCRINE: No diabetes or thyroid disease. INTEGUMENT: No rash, ulcer changes, no changes in any moles or yellow skin. PHYSICAL EXAMINATION: GENERAL: Height is 5 feet 3 inches, weight is 190 pounds. VITAL SIGNS: Temperature 98.4, pulse is 80, blood pressure is 127/71, respiratory rate is 18, pulse OX is 97% on room air. HEENT: Pupils are equal, round, and reactive to light and accomodation. Extraocular muscles intact. Throat is clear. Nose is clear. Tympanic membranes are adams. NECK: Supple. No jugular venous distention, no hepatojugular reflux, no carotid bruits. Thyroid is smooth. CARDIOVASCULAR: Regular rate and rhythm without murmurs, clicks, rubs, or gallops. RESPIRATORY: Clear to auscultation and percussion. ABDOMEN: Soft. Painful in all four quadrants. No rebound or rigidity. She has bowel sounds in all four quadrants. No bruits. EXTREMITIES: No pitting edema, no cyanosis, no clubbing. Full range of motion, peripheral pulses are good. BREASTS: Deferred. GYNECOLOGIC: Deferred. RECTAL: Deferred. NEUROLOGIC: Cranial nerves 2 through 12 intact. No gross defects. Sensation normal, strength normal, deep tendon reflexes equal bilaterally. Babinski's is negative. MENTAL STATUS: Alert and oriented x3. IMPRESSION: 1. Acute exacerbation of Crohn's disease. 2. Abdominal pain. 3. Vomiting and diarrhea. 4. Hypokalemia. PLAN: 1. IV normal saline with potassium chloride and oral replacement of potassium chloride. 2. Dilaudid for pain. 3. We will contact Dr. Birch about the CT enterography, possibly doing it tomorrow. [facility]
[2017-06-22] MEDS: AZATHIOPRINE 150 MG PO SCH (10:32)
[2017-06-22] MEDS: MESALAMINE 1.5 GM PO SCH (10:32)
[2017-06-22] MEDS ORDERED: METOCLOPRAMIDE HCL 10 MG/2 ML VIAL IVP ONE (14:16)
[2017-06-22] MEDS ORDERED: METHYLPREDNISOLONE PF 125MG/VIAL IVP ONE (15:00)
[2017-06-22] MEDS: METHYLPREDNISOLONE PF 125MG/VIAL IVP SCH (22:20)
[2017-06-23] MEDS: HYDROMORPHONE HCL 1 MG/ML SYRINGE IVP PRN ×6 (00:06→22:37)
[2017-06-23] MEDS: POTASSIUM CHL 20MEQ IN 1L NS 20 MEQ/1,000 ML BAG IV SCH ×2 (01:47→09:25)
[2017-06-23] MEDS: DIPHENHYDRAMINE HCL 25 MG CAPSULE PO PRN ×3 (01:47→19:50)
[2017-06-23 07:33] LABS: BLOOD UREA NITROGEN 6 mg/dL (6-20); CREATININE 0.4 mg/dL (0.5-0.9); EST GLOMERULAR FILTRATION RATE > 60 mL/min; GLUCOSE,RANDOM 125 mg/dL (74-109)
[2017-06-23] MEDS ORDERED: 0.9 % SODIUM CHLORIDE 1000ML 3,000 ML IV ONE (09:04)
[2017-06-23] MEDS: POTASSIUM CHLORIDE 20 MEQ TABLET PO SCH (09:25)
[2017-06-23] MEDS ORDERED: ACETAMINOPHEN 325 MG TAB PO PRN (09:25)
[2017-06-23] MEDS: BUSPIRONE 5 MG TABLET PO SCH ×2 (09:39→21:47)
[2017-06-23] MEDS: AZATHIOPRINE 150 MG PO SCH (09:39)
[2017-06-23] MEDS: DULOXETINE HCL 30 MG CAPSULE.DR PO SCH (09:40)
[2017-06-23] MEDS: METHYLPREDNISOLONE PF 125MG/VIAL IVP SCH ×2 (09:41→21:49)
[2017-06-23] MEDS: MESALAMINE 1.5 GM PO SCH (09:41)
[2017-06-23] MEDS: PANTOPRAZOLE SODIUM IV 40 MG VIAL IV SCH (09:41)
--- NOTE | 2017-06-23 21:01 | CT ENTEROGRAPHY REPORT ---
EXAM: CT SCAN ENTEROGRAPHY HISTORY: PARTIAL SMALL BOWEL OBSTRUCTION. HISTORY OF CROHN'S DISEASE. TECHNIQUE: 1350 mL of Volumen were administered orally over two hours. Thin- collimation contrast-enhanced helical CT examination of the abdomen and pelvis is performed following the administration of 100 mL of Omnipaque-300. Images were obtained during the arterial and portal venous phases of enhancement. COMPARISON: Routine CT abdomen and pelvis with contrast examination dated 2017. FINDINGS: Distention of small bowel with low-density contrast is satisfactory for interpretation. There is redemonstration of an ileocolic anastomosis in the right lower quadrant. The cecum appears relatively patulous and the majority of the colon is fluid-distended. There is fluid distention with mild dilatation of a long segment of distal ileum measuring up to 3.3 cm in diameter. On the prior CT examination, the greatest distention of this segment is in the midline measuring 5 cm. This segment has mucosal hyperenhancement and there is persistent fat stranding of the adjacent mesentery. There is continued laxity of the midline abdominal wall just below the umbilicus versus wide-mouthed hernia. There is associated small amount of fluid adjacent to the small bowel segment at the level of the abdominal wall laxity. There is no definite evidence of fistula nor abscess. There is, however, minor fluid within the mesentery within the mid abdomen and there are several lymph nodes in the mesenteric root measuring up to 10 mm in short-axis diameter, likely reactive. There is a questionable hyperenhancing nodular filling defect in the ascending colon measuring 11 mm in diameter and there is an equivocal nodular filling defect in the mid descending colon measuring 12 mm. True polyps cannot excluded and if clinically warranted, these could be further evaluated with colonoscopy. There is again noted a short segment of apparent wall thickening of the distal sigmoid colon likely due to incomplete distention though true thickening with stenosis cannot be excluded. No pneumatosis intestinalis. No free intraperitoneal air. No new focal abnormality within the liver, spleen, pancreas, adrenal glands, nor kidneys. A tiny nonobstructing calculus is again demonstrated in the upper pole of the right kidney. The gallbladder is either contracted or absent. No biliary ductal dilatation is seen. No new intra-abdominal nor retroperitoneal lymphadenopathy. No pelvic mass, lymphadenopathy, or free pelvic fluid. The uterus is in the midline. The ovaries are not enlarged. No lytic or blastic bone lesion. IMPRESSION: 1. ILEOCOLIC ANASTOMOSIS REDEMONSTRATED WITHIN THE RIGHT LOWER QUADRANT. FLUID DISTENDED SEGMENT OF DISTAL COLON, MOST PRONOUNCED NEAR THE MIDLINE ASSOCIATED WITH MILD WALL THICKENING AND MILD ADJACENT FAT STRANDING AND SMALL AMOUNT OF MESENTERIC FLUID. THIS IS CONSISTENT WITH ACTIVE INFLAMMATION/CROHN'S DISEASE. WHILE A PORTION OF THIS SEGMENT IS MILDLY DILATED, NO SHARP ZONE OF TRANSITION IDENTIFIED TO CONFIRM OBSTRUCTION. NO DEFINITE FISTULA NOR ABSCESS. 3. THERE ARE A COUPLE OF NODULAR FILLING DEFECTS WITHIN THE COLON, ONE IN THE ASCENDING COLON AND ONE IN THE DESCENDING COLON WITH POLYPS NOT EXCLUDED. FURTHER EVALUATION WITH COLONOSCOPY RECOMMENDED. 4. AGAIN NOTED IS AN APPARENT SHORT SEGMENT OF WALL THICKENING IN THE DISTAL SIGMOID COLON. THIS MAY RELATE TO INCOMPLETE DISTENTION THOUGH A MUCOSAL ABNORMALITY WITH STRICTURE CANNOT BE EXCLUDED. IF CLINICALLY WARRANTED, THIS COULD BE FURTHER EVALUATED WITH DIRECT VISUALIZATION OR FLUOROSCOPIC BARIUM EXAMINATION. 5. TINY NONOBSTRUCTING CALCULUS REDEMONSTRATED IN THE UPPER POLE OF THE RIGHT KIDNEY. JOB NUMBER: [id number] MTDD
[2017-06-24] MEDS: HYDROMORPHONE HCL 1 MG/ML SYRINGE IVP PRN (02:40)
[2017-06-24 07:46] LABS: BLOOD UREA NITROGEN 6 mg/dL (6-20); CREATININE 0.5 mg/dL (0.5-0.9); EST GLOMERULAR FILTRATION RATE > 60 mL/min; GLUCOSE,RANDOM 140 mg/dL (74-109)
[2017-06-24] MEDS: AZATHIOPRINE 150 MG PO SCH (09:50)
[2017-06-24] MEDS: BUSPIRONE 5 MG TABLET PO SCH (09:50)
[2017-06-24] MEDS: DULOXETINE HCL 30 MG CAPSULE.DR PO SCH (09:51)
[2017-06-24] MEDS: PANTOPRAZOLE SODIUM IV 40 MG VIAL IV SCH (09:51)
[2017-06-24] MEDS: METHYLPREDNISOLONE PF 125MG/VIAL IVP SCH (09:51)
[2017-06-24] MEDS: MESALAMINE 1.5 GM PO SCH (09:51)
[2017-06-24] MEDS: DIPHENHYDRAMINE HCL 25 MG CAPSULE PO PRN (10:00)
--- NOTE | 2017-06-24 12:42 | Discharge Note ---
VTE H&P Assessment - Risk for VTE Risk for VTE: No Risk Level: Very Low Risk Assessment Date: 06/21/17 Risk Assessment Time: 10:00 VTE Orders Placed or Will Be Placed: No VTE Reason for No Prophylaxis: Not Indicated Discharge Medications - Discharge Medications Prescriptions: Hydrocodone/Acetaminophen [Ideal 5-325 Tablet] 1 each PO Q6HR #14 tablet Prednisone [Prednisone 20Mg] 20 mg PO DAILY #6 tab Home Medications: Ambulatory Orders Adalimumab [Humira Pen] 40 mg SQ ASDIR 01/14/15 [Last Taken 06/21/17] Dicyclomine HCl 10 mg PO QID 01/14/15 [Last Taken 06/21/17] Folic Acid 1 mg PO DAILY 01/14/15 [Last Taken 06/21/17] Magnesium 200 mg PO DAILY 01/14/15 [Last Taken 06/21/17] Mesalamine [Apriso] 1.5 gm PO DAILY 01/14/15 [Last Taken 06/21/17] Azathioprine [Imuran] 150 mg PO QAM tab 11/25/15 [Last Taken 06/21/17] Medroxyprogesterone Acetate [Depo-Provera] 150 mg IM [id number] ml 02/09/16 [Last Taken 06/21/17] Cyanocobalamin (Vitamin B-12) [Vitamin B-12] 100 mcg PO DAILY tab 03/30/16 [ Last Taken 06/21/17] Hydrocodone/Acetaminophen [Ideal 5-325 Tablet] 1 each PO Q6HR #14 tablet [Last Taken Unknown] Prednisone [Prednisone 20Mg] 20 mg PO DAILY #6 tab 06/24/17 [Last Taken Unknown] Discharge Note - Date Date of Discharge Note: 06/24/17 Condition: (2) Stable Instructions: Abdominal Pain (ED) Forms: Patient Portal Access
--- NOTE | 2017-06-24 13:25 | Discharge Note ---
VTE H&P Assessment - Risk for VTE Risk for VTE: No Risk Level: Very Low Risk Assessment Date: 06/21/17 Risk Assessment Time: 10:00 VTE Orders Placed or Will Be Placed: No VTE Reason for No Prophylaxis: Not Indicated Discharge Medications - Discharge Medications Prescriptions: Hydrocodone/Acetaminophen [Morenci 5-325 Tablet] 1 each PO Q6HR #14 tablet Prednisone [Prednisone 20Mg] 20 mg PO DAILY #6 tab Home Medications: Ambulatory Orders Adalimumab [Humira Pen] 40 mg SQ ASDIR 01/14/15 [Last Taken 06/21/17] Dicyclomine HCl 10 mg PO QID 01/14/15 [Last Taken 06/21/17] Folic Acid 1 mg PO DAILY 01/14/15 [Last Taken 06/21/17] Magnesium 200 mg PO DAILY 01/14/15 [Last Taken 06/21/17] Mesalamine [Apriso] 1.5 gm PO DAILY 01/14/15 [Last Taken 06/21/17] Azathioprine [Imuran] 150 mg PO QAM tab 11/25/15 [Last Taken 06/21/17] Medroxyprogesterone Acetate [Depo-Provera] 150 mg IM [id number] ml 02/09/16 [Last Taken 06/21/17] Cyanocobalamin (Vitamin B-12) [Vitamin B-12] 100 mcg PO DAILY tab 03/30/16 [ Last Taken 06/21/17] Hydrocodone/Acetaminophen [Morenci 5-325 Tablet] 1 each PO Q6HR #14 tablet [Last Taken Unknown] Prednisone [Prednisone 20Mg] 20 mg PO DAILY #6 tab 06/24/17 [Last Taken Unknown] Discharge Note - Date Date of Discharge Note: 06/24/17 Condition: (2) Stable Instructions: Crohn Disease (DC), Abdominal Pain (ED) Additional Instructions: 2 Activity: TOLERATED 2 Diet: TOLERATED 2 Consults: [] 2 Follow Up: []WITH JADE ELISE WITH DR VARGHESE SCHEDULED 2 Dressing/Wound Care: (Type) (Change) 2 Additional: [] USE PAIN MED NEEDED TAKE PREDNISONE PRESCRIBED Prescriptions: Hydrocodone/Acetaminophen [Morenci 5-325 Tablet] 1 each PO Q6HR #14 tablet Prednisone [Prednisone 20Mg] 20 mg PO DAILY #6 tab Referrals: Jade Powell, N.P. [Primary Care Provider] - Forms: Patient Portal Access Activity at Discharge: Increase Activity as Tolerated Diet at Discharge: Low Salt Diet
--- NOTE | 2017-06-25 08:10 | Discharge Summary ---
DATE: 06/24/2017 DISCHARGE DIAGNOSES: 1. Abdominal pain. 2. Acute exacerbation of Crohn disease, more in the right lower quadrant. 3. Hypokalemia, which has resolved. 4. Vomiting and diarrhea, which has resolved. ATTENDING PHYSICIAN: Abdifatah Patten DO REASON FOR HOSPITALIZATION: Abdominal pain, vomiting, diarrhea, flare-up of Crohn disease after taking her prep for the CT. This 41-year-old female with Crohn disease for many years was recently in the hospital for a flare-up of her Crohn's approximately 1-[address] Birch at the time and was set up for an outpatient CT enterography. She was starting to take the prep for that, started vomiting and diarrhea. She came to the emergency department, seen by Dr. Raza, admitted to the hospital for IV pain control and IV fluids and correction of her potassium. SIGNIFICANT FINDINGS: We did go through and complete the CT, which was significant for inflammatory change in the right lower quadrant consistent with Crohn disease. Initially her white count was 12,700, went down to 10,000. Hemoglobin was 14.6 initially, went down to 13.1. Her potassium was 2.9 in the emergency department and is back up to 3.8 on discharge. Sodium 139 on discharge, chloride 103 on discharge. BUN 6, creatinine 0.5. Urine was negative. Liver enzymes are negative. C-reactive protein was slightly high at 0.65. Acute abdominal x-ray done in the emergency department showing abnormal small bowel pattern demonstrated consistent with enteritis or partial obstruction. The overall number of visualized mildly dilated small bowel loops appeared decreased. Liquid stool again noted within a nondilated colon. No free intraperitoneal air. No evidence of acute cardiomyopathy. The CTE revealed ileocolic anastomosis re-demonstrated with the right lower quadrant fluid-distended segment of the distal colon most pronounced near the midline associated with a mild wall thickening and mild adjacent stranding and small amount of mesenteric fluid that is consistent with inflammation, Crohn disease while a portion of this segment is mildly dilated, no sharp zone of transition identified for an obstruction, no definite fistula or no abscess. There are a couple of nodular filling defects within the colon, one in the ascending colon and one in the descending colon, polyps not excluded, possible colonoscopy down the road. Again noted is an apparent short segment of wall thickening in the distal sigmoid colon. This may be related to incomplete distention through a mucosal abnormality with stricture cannot be excluded. If clinically warranted, this could be further evaluated with direct visualization or fluoroscopic barium enema. Tiny nonobstructive calculus re-demonstrated in the upper pole of the right kidney. THERAPY PROVIDED: IV fluids, pain control with Dilaudid, IV Solu-Medrol 60 mg b.i.d. We will switch over to oral prednisone 20 mg a day for 3 days and then 10 mg a day for 6 days. Diet was increased to a soft diet on discharge. She tolerated the diet well. Her chart said she had adverse reaction to steroids. Mostly she got mean and gained weight; not really a true allergy to steroids. She was switched over to [place] on discharge and Tylenol. She states that she is feeling much better. Consultation with Dr. Rhoades who felt that IV steroids were necessary to get her under control because initially she was resistant to the steroid because of her adverse reaction. HOSPITAL COURSE: Improved. CONDITION ON DISCHARGE: Much improved. DISCHARGE INSTRUCTIONS: Follow up with Dr. Birch tomorrow as scheduled, 7:45 a.m. Follow up with Jade Powell, her primary caregiver, in 1-2 weeks. Soft diet and advance as tolerated. Continue her home medications of Humira and Imuran. Follow up with Dr. Sotelo in 1-2 weeks. CC: Dr. Queta ENCARNACION
--- NOTE | 2017-06-26 08:31 | Medical Records Consult ---
DATE OF CONSULTATION: 06/22/2017 REASON FOR CONSULTATION: Worsening Crohn disease. HISTORY OF PRESENT ILLNESS: This is a 41-year-old female with approximately an 8-year history of Crohn disease for which she has had surgery. Presented to the hospital with persistent nausea and vomiting and abdominal pain with ongoing diarrhea but no blood. We are now asked to see her for evaluation. She has had prior episodes of Crohn disease exacerbation and has been very intolerant to steroids and has been on Humira every 2 weeks and also on Mesalamine preparation and Apriso as well as Imuran. She, however, presented to the hospital with worsening pain and had nausea and vomiting with ongoing diarrhea of up to 8 times a day but no blood in the stool. PAST MEDICAL HISTORY: Her past medical history is significant for the Crohn disease, anxiety disorder, history of depression, history of cervical cancer. REVIEW OF SYSTEMS: A 10-point systemic review performed and as documented in her chart. PHYSICAL EXAMINATION: GENERAL: A pleasant female in no apparent distress lying in bed. VITAL SIGNS: Blood pressure 125/60, heart rate 80, respirations 18. HEENT: She is not pale or jaundiced. Oral mucosa is moist with no ulceration. NECK: Supple with no palpable lymphadenopathy or thyromegaly. LUNGS: Clear to auscultation bilaterally. No wheeze or rales. HEART: S1, S2. No gallop or murmur. ABDOMEN: Soft and nontender. No palpable masses or organomegaly. Bowel sounds appear to be active. EXTREMITIES: No edema, cyanosis, or clubbing. NEUROLOGIC: No focal deficit grossly. LABORATORY DATA: Her complete blood count was normal. Sed rate was 28. RADIOGRAPHIC DATA: CT scan showed a small bowel loop pattern consistent with enteritis with partial obstruction. IMPRESSION: This is a 41-year-old female with history of Crohn disease with what appears to be acute exacerbation. I will give her a short course of steroids to get her over the hump and thereafter she can continue on her Humira and we will see her back in the office. She is due for her next Humira in about 1 week or so. Thank you for allowing me to participate in the care of this patient. CC: Dr. Abdifatah ENCARNACION
== END 2017-06-24 13:40 | disposition home or self-care (01) | DRG 386 ==
LOC: ER 10:14 → MEDSURG 13:58
PROVIDERS: ADMIT Emergency Medicine; ATTEND Emergency Medicine
DX: K50.012 Crohn's disease of small intestine with intestinal obstruction (principal); R11.10 Vomiting, unspecified; R19.7 Diarrhea, unspecified; E87.6 Hypokalemia; Z85.41 Personal history of malignant neoplasm of cervix uteri; F17.210 Nicotine dependence, cigarettes, uncomplicated
CPT/HCPCS: 99285 ×2; 96376; 96374; 96375; 82150; 83690; 85651; 80076; 86140; 80048; 85027; 74022; J2405; J1170 ×2; 74177; 76377; 81003; 81025; 99223; 99233; 99239; C9113; J2765; J2930; J3480; J7030

== ENCOUNTER 2017-08-02 13:58 | Day surgery (SDC) | payer MEDICARE, MEDICAID ==
[2017-08-02] MEDS ORDERED: ONDANSETRON HCL IV 4 MG/2 ML VIAL IVP ONE (13:59)
[2017-08-02] MEDS ORDERED: MIDAZOLAM HCL 2MG/2ML VIAL IV ONE (13:59)
[2017-08-02] MEDS ORDERED: LIDOCAINE 2% MDV (20MG/ML) 20ML VIAL IV ONE (13:59)
[2017-08-02] MEDS ORDERED: PROPOFOL 10 MG/ML VIAL IV ONE (13:59)
--- NOTE | 2017-08-03 12:50 | Operative Note ---
DATE OF SURGERY: 08/02/2017 OPERATION: COLONOSCOPY with biopsy. PREOPERATIVE DIAGNOSIS: History of Crohn's and questionable exacerbation. POSTOPERATIVE DIAGNOSES: 1. Ileitis. 2. Otherwise normal-appearing ileocolonic anastomosis. 3. Rectosigmoiditis with firm inflamed area in rectosigmoid colon possibly related to recurrent Crohn's and possible fistula. PROCEDURE: After informed consent was obtained from the patient, she was placed in the left lateral decubitus position in the endoscopy suite, sedated and monitored by the department of anesthesia. Digital rectal exam was unremarkable. A well-lubricated [id number] colonoscope was inserted into the rectum and advanced to the cecum. Preparation quality was fair to good. The ileocecal anastomosis appeared unremarkable but the luminal portion of the ileum itself demonstrated ulcerative changes and edema consistent with ileitis. The remainder of the ascending colon, transverse colon, descending colon were unremarkable. The distal sigmoid colon/rectosigmoid colon revealed a firm irregular ulcerated type area which was biopsied. With biopsy probing, it was quite firm. No excessive bleeding was noted. The rectum was unremarkable in forward and J-turn views. The endoscope was straightened, the rectal ampulla deflated, and the endoscope was removed. RECOMMENDATIONS: We will await the results of tissue histology to question whether there could even be a possible fistula formation versus recurrent Crohn's. It is possible the patient may require a surgical evaluation versus a change in her current biologic regimen, as she is currently seeming to have inflammation despite the use of Humira, Imuran, and mesalamine. Further recommendations will be forthcoming once tissue histology available. As always, thank you for allowing me to participate in the healthcare of your patients. CC: Jade ENCARNACION
== END 2017-08-02 15:39 | disposition home or self-care (01) ==
LOC: HOP 13:58
PROVIDERS: ATTEND Internal Medicine Gastroenterology
DX: K52.89 Other specified noninfective gastroenteritis and colitis (principal); K50.90 Crohn's disease, unspecified, without complications; K63.89 Other specified diseases of intestine
CPT/HCPCS: 45380; 00811; 81025; 88305; J2405

== ENCOUNTER 2018-01-04 08:31 | Emergency (ER) | payer MEDICARE, MEDICAID ==
[2018-01-04] MEDS ORDERED: 0.9 % SODIUM CHLORIDE 1,000 ML BAG IV ONE (08:55)
[2018-01-04] MEDS ORDERED: ONDANSETRON HCL IV 4 MG/2 ML VIAL IV ONE (08:55)
[2018-01-04] MEDS ORDERED: ACETAMINOPHEN 1,000 MG/100 ML BTL IVPB ONE (08:57)
--- NOTE | 2018-01-04 08:58 | Emergency Department Record ---
History of Present Illness - General Chief complaint: Nausea, Vomiting, Diarrhea Stated complaint: NAUSEA/VOMITING Time Seen by Provider: 01/04/18 08:49 Source: Patient Mode of Arrival: Ambulatory - History of Present Illness Initial comments: The patient states she has a history of Crohn's disease diagnosed in the last 10 years. She has had a resection of her bowels totalling 6 inches, some small and large bowel was removed in 2012. On 01-02-18 she began vomiting, and has been vomiting 5-10 times daily since. Her abdomen hurts all over, but is most tender in her RLQ. Her urine is very dark in color. She is on Entyvio for her Crohn's disease, last given IV around the of this month. she also has a history of low potassium, appy, lap ulises. She denies fevers, cough, chest pain, FERNANDEZ, or other symptoms. Onset/Timin -: Week(s) Description of Vomiting: Watery Description of Diarrhea: Water Associated Abdominal Pain: Yes Location: RLQ Radiation: None Severity scale (1-10): 7 Quality: Cramping, Sharp Consistency: Constant Improves with: None Worsens with: None Associated Symptoms: Nausea/vomiting - Related Data Allergies Allergy/AdvReac Type Severity Reaction Status Date / Time steroids AdvReac Intermediate crying, Uncoded 06/21/17 10:18 anger, emotionally distressed Travel Screening - Travel/Exposure Within Last 30 Days Have you traveled within the last 30 days?: No Review of Systems Reviewed: No additional complaints except as noted below Constitutional: Reports: As per HPI. Denies: Chills, Fever, Malaise, Night sweats, Weakness, Weight change Eyes: Reports: As per HPI. Denies: Eye discharge, Eye pain, Photophobia, Vision change ENT: Reports: As per HPI. Denies: Congestion, Dental pain, Ear pain, Epistaxis , Hearing loss, Throat pain Respiratory: Reports: As per HPI. Denies: Cough, Dyspnea, Hemoptysis, Stridor, Wheezes Cardiovascular: Reports: As per HPI. Denies: Arrhythmia, Chest pain, Dyspnea on exertion, Edema, Murmurs, Orthopnea, Palpitations, Paroxysmal nocturnal dyspnea, Rheumatic Fever, Syncope Endocrine: Reports: As per HPI. Denies: Fatigue, Heat or cold intolerance, Polydipsia, Polyuria Gastrointestinal: Reports: As per HPI. Denies: Abdominal pain, Constipation, Diarrhea, Hematemesis, Hematochezia, Melena, Nausea, Vomiting Genitourinary: Reports: As per HPI. Denies: Abnormal menses, Discharge, Dyspareunia, Dysuria, Frequency, Hematuria, Incontinence, Retention, Urgency Musculoskeletal: Reports: As per HPI. Denies: Arthralgia, Back pain, Gout, Joint swelling, Myalgia, Neck pain Skin: Reports: As per HPI. Denies: Bruising, Change in color, Change in hair/ nails, Lesions, Pruritus, Rash Neurological: Reports: As per HPI. Denies: Abnormal gait, Confusion, Headache, Numbness, Paresthesias, Seizure, Tingling, Tremors, Vertigo, Weakness Psychiatric: Reports: As per HPI. Denies: Anxiety, Auditory hallucinations, Depression, Homicidal thoughts, Suicidal thoughts, Visual hallucinations Hematological/Lymphatic: Reports: As per HPI. Denies: Anemia, Blood Clots, Easy bleeding, Easy bruising, Swollen glands Past Medical History - SOCIAL HISTORY Smoking Status: Current every day smoker - RESPIRATORY Hx Respiratory Disorders: No - CARDIOVASCULAR Hx Cardio Disorders: No - NEURO Hx Neuro Disorders: No - GI Hx GI Disorders: Yes Hx Crohn's Disease: Yes Hx Obstructive Bowel: Yes (today) - Hx Genitourinary Disorders: No - ENDOCRINE Hx Endocrine Disorders: No Hx Diabetes: No Hx Thyroid Disease: No - MUSCULOSKELETAL Hx Musculoskeletal Disorders: No - PSYCH Hx Psych Problems: Yes Hx Anxiety: Yes (meds) Hx Depression: Yes (meds) - HEMATOLOGY/ONCOLOGY Hx Hematology/Oncology Disorders: Yes Hx Cancer: Yes (Cervical, hpv) Family Medical History Any Significant Family History?: Yes Hx Cancer: Grandparents Hx Heart Disease: Father, Grandparents Hx Stroke: Mother Physical Exam - General General Appearance: Alert, Oriented x3, Cooperative, Moderate distress ( states 7/10 pain) - Head Head exam: Normal inspection - Eye Eye exam: Normal appearance, PERRL, Conjunctival injection, EOMI. negative: Nystagmus Pupils: Normal accommodation - ENT ENT exam: Normal exam, Mucous membranes dry, Normal external ear exam, Normal orophraynx, TM's normal bilaterally Ear exam: Normal external inspection. negative: External canal tenderness Nasal Exam: Normal inspection. negative: Discharge, Sinus tenderness Mouth exam: Normal external inspection, Tongue normal Teeth exam: Normal inspection. negative: Dental caries Throat exam: Normal inspection. negative: Tonsillar erythema, Tonsillar exudate - Neck Neck exam: Normal inspection, Full ROM. negative: Lymphadenopathy, Meningismus , Tenderness - Respiratory Respiratory exam: Normal lung sounds bilaterally. negative: Respiratory distress - Cardiovascular Cardiovascular Exam: Normal rhythm, Normal heart sounds, Tachycardia - GI/Abdominal GI/Abdominal exam: Soft, Normal bowel sounds. negative: Tenderness - Rectal Rectal exam: Deferred - exam: Deferred - Extremities Extremities exam: Normal inspection, Full ROM, Normal capillary refill. negative: Calf tenderness, Pedal edema, Tenderness - Back Back exam: Reports: Normal inspection, Full ROM. Denies: CVA tenderness (R), CVA tenderness (L), Muscle spasm, Rash noted, Tenderness - Neurological Neurological exam: Alert, CN II-XII intact, Normal gait, Oriented X3, Reflexes normal. negative: Motor sensory deficit - Psychiatric Psychiatric exam: Normal affect, Normal mood - Skin Skin exam: Dry, Intact, Normal color, Warm Course Vital Signs 01/04/18 08:34 Temperature 97.9 F Pulse Rate 116 H Respiratory 20 Rate Blood Pressure 112/50 Pulse Ox 97 - Reevaluation(s) Reevaluation #1: Patient is drinking her contrast. Potassium added to second IV as well as orally given due to K= 2.2. 01/04/18 09:31 Reevaluation #2: 01/04/18 12:14 Levsin helped her pain, potassium infusing, and awaiting CT results. Patient is comfortable. Reevaluation #3: 01/04/18 16:19 Patient was up to bathroom on her own and stating she is feeling much better. Awaiting potassium infusion and repeat prior to discharge. Reevaluation #4: The patient admits that she has not been able to keep down her potassium for the past 2 days, and has not taken her potassium this morning. Will contact her PCP to arranged follow up of this as an out patient. 01/04/18 18:07 Reevaluation #5: spoke with Tori Vieyra who will arrange out patient lab draw for potassium tomorrow and patient is to have her blood drawn at that time and follow per phone with Tori Vieyra [employer]. Patient aware and understands. 01/04/18 18:20 Medical Decision Making - Management Options MDM Management: Additional Work-up Planned (e.g. ADM/Transfer/OP Study) (Out patient repeat potassium through her PCP Tori Vieyra) - Data Complexity MDM Data: Labs Ordered and/or Reviewed, X-Ray Ordered and/or Reviewed (Contrast CT Abd/Pelvis: No acute abnormality, the sigmoid is not visualized, appendix surgically absent. Per radiology.) - Lab Data Result diagrams: 01/04/18 08:45 01/04/18 17:25 Disposition Disposition: Discharge Clinical Impression: Hypokalemia Abdominal pain Qualifiers: Abdominal location: right lower quadrant Qualified Code(s): R10.31 - Right lower quadrant pain Crohns disease Qualifiers: Gastrointestinal tract location: small and large intestine Digestive disease complication type: without complication Qualified Code(s): K50.80 - Crohn's disease of both small and large intestine without complications Disposition: Home, Self-Care Condition: (1) Good Instructions: Crohn Disease (ED), Hypokalemia (ED), Abdominal Pain (ED) Additional Instructions: Increase fluid intake. Continue present meds. Resume your potassium gluconate as before. High potassium diet. Return to [facility] lab tomorrow afternoon for out patient lab draw of potassium level. Tori Vieyra will follow this with you and be in contact. Follow up with PCP as needed. Quality - Quality Measures Quality Measures: N/A - Blood Pressure Screening Does Patient Have Any of the Following: No Blood Pressure Classification: Normal BP Reading Systolic Measurement: 112 Diastolic Measurement: 50 Screening for High Blood Pressure: < Normal BP, F/U Not Required > [G8783]
[2018-01-04 09:03] LABS: BASO % 0.3 % (0-6); EOS % 0.3 % (0-6); GRAN % 77.1 % (47-80); HEMATOCRIT 45.7 % (35.0-47.0); HEMOGLOBIN 16.3 gm/dl (11.6-16.0); LYMPH % 13.4 % (16-45); MEAN CELL VOLUME 95.6 fl (81-97); MEAN CORPUSCULAR HEMOGLOBIN 34.1 pg (27-33); MEAN CORPUSCULAR HGB CONC 35.7 g/dl (32-36); MEAN PLATELET VOLUME 10.8 fl (7.4-10.4); MONO % 8.9 % (0-9); PLATELET COUNT 369 K/uL (130-400); RED BLOOD COUNT 4.78 M/uL (3.80-5.40); RED CELL DISTRIBUTION WIDTH 13.4 % (11.5-14.5); WHITE BLOOD COUNT W/O DIFF 8.8 K/uL (4.2-12.2)
[2018-01-04 09:13] LABS: BLOOD UREA NITROGEN 8 mg/dL (6-20); CREATININE 0.7 mg/dL (0.5-0.9); EST GLOMERULAR FILTRATION RATE > 60 mL/min
[2018-01-04 09:14] LABS: TOTAL PROTEIN 8.2 g/dL (6.6-8.7)
[2018-01-04 09:16] LABS: GLUCOSE,RANDOM 107 mg/dL (74-109)
[2018-01-04 09:18] LABS: ALB/GLOB RATIO 1.3 (1.1-1.8); ALBUMIN 4.6 g/dL (4.0-5.0); ALKALINE PHOSPHATASE 102 U/L (35-104); ALT/SGPT 8 U/L (<33); AST/SGOT 14 U/L (10.0-35.0)
[2018-01-04 09:19] LABS: LIPASE 36 U/L (13-60)
[2018-01-04] MEDS ORDERED: POTASSIUM CHL 20MEQ IN 1L NS 20 MEQ in 0.9 % SODIUM CHLORIDE 1000ML 1 BAG IV ONE ×2 (09:26)
[2018-01-04] MEDS ORDERED: POTASSIUM CHLORIDE 20 MEQ TABLET PO ONE ×2 (09:28→18:01)
[2018-01-04] MEDS ORDERED: POTASSIUM CHL 20MEQ IN 1L NS 20 MEQ/1,000 ML BAG IV ONE (09:40)
[2018-01-04] MEDS ORDERED: HYOSCYAMINE SULFATE ODT 0.125 MG TAB.SUBL SL ONE (10:26)
[2018-01-04 12:03] LABS: URINE APPEARANCE CLEAR; URINE BILIRUBIN NEGATIVE (NEGATIVE); URINE BLOOD SMALL (NEGATIVE); URINE COLOR YELLOW; URINE GLUCOSE (UA) NEGATIVE (NEGATIVE); URINE KETONE 15 mg/dL (NEGATIVE); URINE NITRITE NEGATIVE (NEGATIVE); URINE PROTEIN NEGATIVE (NEGATIVE); URINE UROBILINOGEN 0.2 E.U./dL (0.20 - 1.00)
[2018-01-04 12:11] LABS: URINE LEUKOCYTE ESTERASE TRACE (NEGATIVE)
[2018-01-04 12:12] LABS: URINE WBC 0 - 2 (0-2/hpf)
[2018-01-04 12:13] LABS: URINE BACTERIA NONE SEEN
--- NOTE | 2018-01-04 15:10 | CT SCAN REPORT ---
EXAM: CT OF THE ABDOMEN AND PELVIS WITH CONTRAST HISTORY: RIGHT LOWER QUADRANT PAIN. TECHNIQUE: Sequential axial images were obtained from the diaphragms through the ischiorectal fossa after intravenous and oral administration of 100 ml of Omnipaque 300 contrast material. Comparison: 08/08/17. FINDINGS: The visualized lung bases appear normal. The liver appears homogeneous. The gallbladder has been surgically removed. Mild intrahepatic ductal dilatation. The pancreas and spleen appears normal. The adrenal glands and kidneys appear normal. No CT findings suggestive of obstructive uropathy. The small bowel appears normal. There is laxity of the midline abdominal wall. No evidence of obstruction. The distal colon is featureless, however, similar in appearance to prior examinations. The urinary bladder appears normal. IMPRESSION: 1. FEATURELESS SIGMOID COLON. NO DEFINITIVE INFLAMMATORY CHANGE. FINDINGS ARE SIMILAR WHEN COMPARED TO THE PRIOR EXAMINATION. 2. THE REMAINDER OF THE EXAMINATION IS UNREMARKABLE. THERE IS LAXITY OF THE MIDLINE ABDOMINAL WALL. JOB NUMBER: [id number] MTDD
== END 2018-01-04 19:06 | disposition home or self-care (01) ==
LOC: ER 08:31
DX: R11.2 Nausea with vomiting, unspecified (principal); E87.6 Hypokalemia; K50.80 Crohn's disease of both small and large intestine without complications; F17.210 Nicotine dependence, cigarettes, uncomplicated; R19.7 Diarrhea, unspecified
CPT/HCPCS: 99284; 96365; 96375; 96361; 99285; 83690; 84132; 85025; 80053; 81001; 74177; Q9967; J1980; J2405; J7030

== ENCOUNTER 2018-04-26 08:01 | Emergency (ER) | payer MEDICARE, MEDICAID ==
[2018-04-26] MEDS ORDERED: KETOROLAC 30 MG/ML VIAL IM ONE (08:25)
[2018-04-26] MEDS ORDERED: ORPHENADRINE CITRATE 60MG/2ML VIAL IM ONE (08:25)
--- NOTE | 2018-04-26 08:31 | Emergency Department Record ---
History of Present Illness - General Chief complaint: Pain Stated complaint: SPASMS IN SIDE Time Seen by Provider: 04/26/18 08:16 Source: Patient, Family Mode of Arrival: Ambulatory Limitations: No limitations - History of Present Illness Initial comments: 42 yo female presents with left rib/side pain for two weeks. The pain started when she reached over apply deodorant. The area sudden pulled and began to spasm. She has been feeling a pop with certain movements since that time. It is sore to touch over the ribs but no rash. No cough. The pain goes does the left side of the abdomen as well. No changes in bowel, bladder, urinary function. No fevers. The pain is worse if she pushes on the area, moves, coughs, twists, changes positions. Onset/Timin -: Week(s) Location: Left (ribs) History of Same: No Severity scale (1-10): 10 Quality: Stabbing Consistency: Constant, Intermittent Improves with: Nothing Worsens with: Palpation, Other (moving, turning, twisting) Associated Symptoms: Denies other symptoms - Related Data Previous Rx's Medication Instructions Recorded Cyclobenzaprine HCl [Flexeril] 10 mg PO TID #12 tablet 04/26/18 Allergies Allergy/AdvReac Type Severity Reaction Status Date / Time steroids AdvReac Intermediate crying, Uncoded 04/26/18 08:15 anger, emotionally distressed Travel Screening - Travel/Exposure Within Last 30 Days Have you traveled within the last 30 days?: No Review of Systems Constitutional: Denies: Chills, Fever, Malaise, Weakness Eyes: Denies: Eye discharge ENT: Denies: Congestion, Throat pain Respiratory: Denies: Cough, Dyspnea, Hemoptysis, Stridor, Wheezes Cardiovascular: Reports: Chest pain (left ribs). Denies: Dyspnea on exertion, Edema, Palpitations, Syncope Endocrine: Denies: Fatigue, Polydipsia, Polyuria Gastrointestinal: Denies: Abdominal pain, Diarrhea, Nausea, Vomiting Genitourinary: Denies: Dysuria, Urgency Musculoskeletal: Reports: Myalgia. Denies: Arthralgia, Back pain, Joint swelling, Neck pain Skin: Denies: Bruising, Change in color, Rash Neurological: Denies: Headache Psychiatric: Denies: Anxiety Hematological/Lymphatic: Denies: Blood Clots, Easy bleeding, Easy bruising, Swollen glands Past Medical History - SOCIAL HISTORY Smoking Status: Current every day smoker Alcohol Use: None Drug Use: None - RESPIRATORY Hx Respiratory Disorders: No - CARDIOVASCULAR Hx Cardio Disorders: No - NEURO Hx Neuro Disorders: No - GI Hx GI Disorders: Yes Hx Crohn's Disease: Yes Hx Obstructive Bowel: Yes (today) - Hx Genitourinary Disorders: No - ENDOCRINE Hx Endocrine Disorders: No Hx Diabetes: No Hx Thyroid Disease: No - MUSCULOSKELETAL Hx Musculoskeletal Disorders: No - PSYCH Hx Psych Problems: Yes Hx Anxiety: Yes (meds) Hx Depression: Yes (meds) - HEMATOLOGY/ONCOLOGY Hx Hematology/Oncology Disorders: Yes Hx Cancer: Yes (Cervical, hpv) Family Medical History Any Significant Family History?: Yes Hx Cancer: Grandparents Hx Heart Disease: Father, Grandparents Hx Stroke: Mother Physical Exam - General General Appearance: Alert, Oriented x3, Cooperative, No acute distress Limitations: No limitations - Head Head exam: Atraumatic, Normal inspection - Eye Eye exam: Normal appearance. negative: Conjunctival injection, Scleral icterus - ENT ENT exam: Normal exam, Mucous membranes moist Ear exam: Normal external inspection Nasal Exam: Normal inspection Mouth exam: Normal external inspection - Neck Neck exam: Normal inspection - Respiratory Respiratory exam: Normal lung sounds bilaterally, Chest wall tenderness (the left lateral ribs are tender to palpation, no rash, the lower 1/3 of the ribs are very sensitive to any mild palpation, the upper 2/3 of ribs are not involved ). negative: Accessory muscle use, Decreased breath sounds, Prolonged expiratory, Respiratory distress, Rhonchi, Stridor, Wheezes - Cardiovascular Cardiovascular Exam: Regular rate, Normal rhythm, Normal heart sounds - GI/Abdominal GI/Abdominal exam: Soft, Tenderness (mildly tender left side at lower rib margins, no rash, no mass). negative: Distended, Hypoactive bowel sounds, Rebound - Rectal Rectal exam: Deferred - exam: Deferred - Extremities Extremities exam: Normal inspection, Full ROM, Normal capillary refill. negative: Calf tenderness, Pedal edema, Tenderness - Back Back exam: Reports: CVA tenderness (L), Muscle spasm, Tenderness. Denies: Vertebral tenderness - Neurological Neurological exam: Alert, Oriented X3 - Psychiatric Psychiatric exam: Normal affect, Normal mood - Skin Skin exam: Dry, Intact, Normal color, Warm Course Vital Signs 04/26/18 08:11 Temperature 97.6 F Pulse Rate 111 H Respiratory 20 Rate Blood Pressure 122/85 Pulse Ox 97 - Reevaluation(s) Reevaluation #1: The patient was seen and examined The pain is reproducible with palpation and movement The pain is consistent with musculoskeletal cause from the history and physical examination 04/26/18 08:32 04/26/18 09:22 The patient reports she is getting good improvement The CXR was negative We discussed home care, reasons to return, and close follow up Disposition Disposition: Discharge Clinical Impression: Rib pain on left side Disposition: Home, Self-Care Condition: (1) Good Instructions: Muscle Spasm (ED) Additional Instructions: Call your doctor for the next available follow up appointment Return to the ER for a recheck if worse, any new concerns or questions Take the prescriptions provided as directed Review this ER visit and the tests performed with your family doctor Prescriptions: Cyclobenzaprine HCl [Flexeril] 10 mg PO TID #12 tablet Forms: Patient Portal Access Time of Disposition: 09:23 Quality - Quality Measures Quality Measures: N/A - Blood Pressure Screening Does Patient Have Any of the Following: No Blood Pressure Classification: Pre-Hypertensive BP Reading Systolic Measurement: 122 Diastolic Measurement: 85 Screening for High Blood Pressure: < Pre-Hypertensive BP, F/U Documented > [ [id number]] Pre-Hypertensive Follow-up Interventions: Referral to alternative/primary care provider.
--- NOTE | 2018-04-27 15:24 | RADIOLOGY REPORT ---
DATE: 04/26/2018 at 8:44 a.m. EXAM: TWO-VIEW CHEST. HISTORY: LEFT RIB PAIN AND SPASM. NO HISTORY OF INJURY. TECHNIQUE: PA and lateral views. COMPARISON: PA chest dated 01/16/2011. FINDINGS: Heart size within normal limits. Lungs appear expanded with no acute infiltrate seen. No pleural effusion or pneumothorax evident. IMPRESSION: CHEST APPEARS NEGATIVE WITH NO ACUTE INFILTRATE IDENTIFIED. JOB NUMBER: [id number] MTDD
== END 2018-04-26 09:35 | disposition home or self-care (01) ==
LOC: ER 08:01
DX: R07.81 Pleurodynia (principal); F17.210 Nicotine dependence, cigarettes, uncomplicated
CPT/HCPCS: 99283; 96372; 99284; 71046; J1885; J2360

== ENCOUNTER 2018-10-03 11:21 | Day surgery (SDC) | payer MEDICARE, MEDICAID ==
[2018-10-03] MEDS ORDERED: FENTANYL PF 100MCG/2ML VIAL IV ONE (11:22)
[2018-10-03] MEDS ORDERED: PROPOFOL 10 MG/ML VIAL IV ONE (11:22)
[2018-10-03] MEDS ORDERED: LIDOCAINE 2% MDV (20MG/ML) 20ML VIAL IV ONE (11:22)
--- NOTE | 2018-10-04 12:11 | Operative Note ---
DATE OF SURGERY: 10/03/2018 OPERATION: 1. ESOPHAGOGASTRODUODENOSCOPY. 2. COLONOSCOPY with biopsy and cold snare polypectomy. PREOPERATIVE DIAGNOSIS: Nausea, vomiting, diarrhea, history of Crohn's. POSTOPERATIVE DIAGNOSES: 1. Normal upper endoscopy. 2. Normal-appearing ileocolonic anastomosis. 3. Postoperative changes in distal sigmoid colon. 4. Proximal descending colon polyp, status post cold snare polypectomy. 5. Random colonic biopsies obtained to rule out microscopic evidence of colitis. PROCEDURE: After informed consent was obtained from the patient, she was placed in the left lateral decubitus position in the endoscopy suite, sedated and monitored by the department of anesthesia. Once sedated, a well-lubricated IRE020 gastroscope was placed in the posterior oropharynx under direct visualization and passed to the proximal esophagus. The endoscope was advanced through the proximal, mid, and distal esophagus. The GE junction and esophagus were unremarkable. The gastric body demonstrated normal distensibility, normal rugal folds. The body, antrum, pylorus, duodenal bulb and sweep were carefully inspected. No inflammation, erosions, ulcerations, or masses were seen. Forward and J-turn views of the proximal stomach were unremarkable. The endoscope was straightened and retracted from the patient with no new findings noted. Digital rectal exam was unremarkable. A well-lubricated [id number] colonoscope was inserted into the rectum and advanced to the ileocolonic anastomosis/neocecum. The small bowel that was visualized appeared unremarkable. No inflammation was seen. Random biopsies were obtained throughout the length of the colon. No inflammation was seen in the remaining right colon, transverse colon, descending colon, sigmoid colon, or rectum. There were some scarring and postoperative changes in the distal sigmoid colon. There was also a proximal descending colon polyp approximately 5 mm in diameter removed with a cold snare. Forward and J-turn views of the rectum and anorectum were unremarkable. The endoscope was straightened, the rectal ampulla deflated, and the endoscope was removed. RECOMMENDATIONS: At this point, the patient clearly needs to stop smoking. The source of her diarrhea is unclear but I still question whether she could have some bile salt-induced diarrhea related to her previous surgery. I will discuss this matter further with her. She is otherwise to continue her current medical program. As always, thank you for allowing me to participate in the healthcare of your patients. CC: ARNIE Sherman
== END 2018-10-03 13:18 | disposition home or self-care (01) ==
LOC: HOP 11:21
PROVIDERS: ATTEND Internal Medicine Gastroenterology
DX: R11.10 Vomiting, unspecified (principal); R11.0 Nausea; R19.7 Diarrhea, unspecified; K50.90 Crohn's disease, unspecified, without complications; D12.4 Benign neoplasm of descending colon; J44.9 Chronic obstructive pulmonary disease, unspecified
CPT/HCPCS: 45380; 45385; 43235; 00813; 88305; 84703; J3010